=== PATIENT | male | born 1955 | race Caucasian/White ===

== ENCOUNTER → 2016-12-25 | Outpatient (CLI) | payer OTHER ==
--- NOTE | 2016-12-25 12:24 | CONS ---
DATE OF CONSULTATION: 12/25/2016 CONSULTATION/NEW PATIENT EVALUATION: A 61-year-old gentleman who has been admitted [facility] in [facility] for obstructive sleep apnea-hypopnea syndrome. Patient has history of obstructive sleep apnea for about 13 years. He is on treatment with CPAP. He is using his equipment every night for the whole night. His machine is about 3 years old. Last sleep study done about 5 or more years ago. Since that time, patient changed his weight from 210 pounds up to 240 pounds and then down to 230 pounds presently. HISTORY OF PRESENT ILLNESS/SLEEP WAKE EVALUATION: SLEEP SCHEDULE: His sleep schedule from 11 p.m. to 6 a.m. FALLING ASLEEP: No problem with falling asleep. DURING SLEEP: He wakes up from sleep once with nocturia, has TV set in bedroom. Vancleve Sleepiness Scale increased to 11. PAST MEDICAL HISTORY: Positive for diabetes, hypertension, hyperlipidemia, anxiety. PAST SURGICAL HISTORY: Bilateral hip replacement. MEDICATIONS: Metformin, metoprolol, lisinopril, amlodipine, Lantus, alprazolam, hydrocodone acetaminophen, atorvastatin. SOCIAL HISTORY: Positive for smoking in the past. More than 1 pack a day for 20 years; quit 20 years ago. Alcohol consumption rarely. REVIEW OF SYSTEMS: Sometimes sleepiness during the day. FAMILY HISTORY: Hypertension, heart problems, hyperlipidemia, arthritis, snoring, diabetes, ulcers. During physical exam, a 61-year-old gentleman without distress. BP 146/77, HR 64, RR 16. Height 5, 8. Weight 243. BMI 36.9, neck 18 inches in circumference. Temp is 97.3. Oropharynx extremely low position of soft palate. ABDOMEN: Obese. NECK: Supple. No JVD. Thyroid is not palpable. LUNGS: Clear to percussion and to auscultation. Good air exchange. No wheezing or rhonchi. HEART: S1, S2 regular. No murmurs, gallops or rubs. EXTREMITIES: No clubbing or cyanosis. CONTRACTS ANALYST: Awake, alert, and oriented x3. Cranial nerves 2 to 7 intact. There is no fasciculation or atrophy noted. No focal deficits observed. IMPRESSION: 1. Obstructive sleep apnea-hypopnea syndrome diagnosed 13 years ago. Patient continued treatment with CPAP every night for the whole night. Presently, Vancleve Sleepiness Scale increased to 13, some changes of the weight. 2. Obesity. 3. Diabetes mellitus. 4. Hypertension. 5. Hyperlipidemia. 6. Anxiety. 7. Status post bilateral total hip replacement. PLAN: 1. Repeat CPAP titration for re-evaluation of effective CPAP pressure at the present time. 2. Losing weight. 3. Sleep hygiene with regular time in bed for at least 8 hours. 4. No driving if feeling any sleepiness. 5. Prescription for all necessary CPAP supplies, including mask, tube, filters. Thank you very much for referring this patient for evaluation. Sincerely, Pravin Callejas MD, PhD, FAASM. Diplomat of [place] [employer], Sleep Medicine Board by [place] [employer] [place] [employer] Patient Carrier of [facility] [place]
== END | disposition home or self-care (01) ==
LOC: SLEEP 09:57
PROVIDERS: ATTEND Internal Medicine
DX: G47.33 Obstructive sleep apnea (adult) (pediatric) (principal); Z99.89 Dependence on other enabling machines and devices; E66.9 Obesity, unspecified; Z68.36 Body mass index [BMI] 36.0-36.9, adult; E11.9 Type 2 diabetes mellitus without complications; I10 Essential (primary) hypertension; E78.5 Hyperlipidemia, unspecified; F41.9 Anxiety disorder, unspecified; Z96.643 Presence of artificial hip joint, bilateral; Z87.891 Personal history of nicotine dependence; Z79.899 Other long term (current) drug therapy
CPT/HCPCS: 99211

== ENCOUNTER 2019-03-14 01:07 | Emergency (ER) | payer MEDICARE, OTHER ==
[2019-03-14 01:27] LABS: Glucose,Whole Blood 211 mg/dL (75-99)
--- NOTE | 2019-03-14 01:42 | ED ---
General Adult HPI - General Source: patient, RN notes reviewed Mode of arrival: wheelchair Limitations: no limitations <John Hanna P - Last Filed: 03/14/19 03:25> <Shanta Curran P - Last Filed: 03/14/19 05:56> - General Chief complaint: Dizziness Stated complaint: Low Sugar Time Seen by Provider: 03/14/19 01:27 - History of Present Illness Initial comments: 63-year-old male with a past medical history of insulin-dependent diabetes myelitis, hyperlipidemia, hypertension, atrial fibrillation currently taking xarelto presents to the emergency determine for a chief complaint of hypoglycemia. Patient states that he was up in the kitchen when he suddenly started to feel lightheaded and became very sweaty. States that he felt weak and confused. states that she checked his blood sugar and it was 66. States this is very low for him. Patient states he took his Lantus about 2 hours later than normal. Patient states he usually takes is around 9 and took at about 2240. States he took his normal dose. Patient has not gained much today. Denies any chest pain whatsoever. States he does have atrial fibrillation, denies any other cardiac history.Patient has no other complaints at this time including shortness of breath, chest pain, abdominal pain, nausea or vomiting, headache, or visual changes. (John Hanna) - Related Data Allergies Allergy/AdvReac Type Severity Reaction Status Date / Time cyclobenzaprine Allergy Rapid Verified 03/14/19 01:13 [From Flexeril] Heart Rate Penicillins Allergy Unknown Verified 03/14/19 01:13 red (food color) Allergy Rash/Hives Verified 03/14/19 01:13 Review of Systems ROS Other: All systems not noted in ROS Statement are negative. <John Hanna P - Last Filed: 03/14/19 03:25> ROS Other: All systems not noted in ROS Statement are negative. <Shanta Curran P - Last Filed: 03/14/19 05:56> ROS Statement: Those systems with pertinent positive or pertinent negative responses have been documented in the HPI. Past Medical History Past Medical History: Diabetes Mellitus, Hyperlipidemia, Hypertension History of Any Multi-Drug Resistant Organisms: None Reported Past Surgical History: Appendectomy, Orthopedic Surgery Past Psychological History: No Psychological Hx Reported Smoking Status: Former smoker Past Alcohol Use History: None Reported Past Drug Use History: None Reported <John Hanna P - Last Filed: 03/14/19 03:25> General Exam Limitations: no limitations General appearance: alert, in no apparent distress Head exam: Present: atraumatic, normocephalic, normal inspection Eye exam: Present: normal appearance, PERRL, EOMI. Absent: scleral icterus, conjunctival injection, periorbital swelling ENT exam: Present: normal exam, mucous membranes moist Neck exam: Present: normal inspection, full ROM. Absent: tenderness, meningismus, lymphadenopathy Respiratory exam: Present: normal lung sounds bilaterally. Absent: respiratory distress, wheezes, rales, rhonchi, stridor Cardiovascular Exam: Present: regular rate, normal rhythm, normal heart sounds. Absent: systolic murmur, diastolic murmur, rubs, gallop, clicks Neurological exam: Present: alert, oriented X3, CN II-XII intact Psychiatric exam: Present: normal affect, normal mood Skin exam: Present: warm, dry, intact, normal color. Absent: rash, diaphoretic (Patient is not diaphoretic on examination) <John Hanna P - Last Filed: 03/14/19 03:25> Course Vital Signs 03/14/19 03/14/19 01:09 03:43 Temperature 97.6 F 97.4 F L Pulse Rate 58 L 54 L Respiratory 18 19 Rate Blood Pressure 152/75 161/84 O2 Sat by Pulse 94 L 94 L Oximetry EKG Findings - EKG Comments: EKG Findings:: Sinus bradycardia, ventricular rate 57, ID int 206, QTC 436 <John Hanna P - Last Filed: 03/14/19 03:25> Medical Decision Making - Lab Data Result diagrams: 03/14/19 01:40 03/14/19 01:40 <John Hanna P - Last Filed: 03/14/19 03:25> - Lab Data Result diagrams: 03/14/19 01:40 03/14/19 01:40 <Shanta Curran P - Last Filed: 03/14/19 05:56> - Medical Decision Making 63-year-old male with a past medical history of insulin-dependent diabetes, hyperlipidemia, hypertension, atrial fibrillation anticoagulated with xarelto presents to the emergency room for a chief complaint of hypoglycemia. Patient states he had an episode of diaphoresis and dizziness and checked his glucose which was 66. Patient states this is very low for him. Patient states he took his Lantus 2 hours later than normal because he got earlier in the evening. Patient ate 2 candy bars prior to arrival to increase his glucose. Patient is feeling back to baseline at this time. Workup was initiated including CBC, CMP, troponin, all appear within normal limits. Glucose 200-300. Troponin negative. EKG shows a sinus bradycardia with a ventricular rate of 57. Patient does have some blood in the urine which she states that he is currently following urology 4. Patient symptoms are consistent with hypoglycemia. As patient is in much better he will be discharged home. He will follow up with primary care in 1-2 days and return here if he has any worsening symptoms. (John Hanna) I was available for consultation in the emergency department. The history and physical exam were done by the midlevel provider. I was consulted for this patient's care. I reviewed the case with the midlevel provider and based on their presentation of the patient, I agree with the assessment, medical decision making and plan of care as documented. (Shanta Curran) - Lab Data Lab Results 03/14/19 03/14/19 03/14/19 Range/Units 01:24 01:40 01:40 WBC (3.8-10.6) k/uL RBC (4.30-5.90) m/uL Hgb (13.0-17.5) gm/dL Hct (39.0-53.0) % MCV (80.0-100.0) fL MCH (25.0-35.0) pg MCHC (31.0-37.0) g/dL RDW (11.5-15.5) % Plt Count (150-450) k/uL Neutrophils % % Lymphocytes % % Monocytes % % Eosinophils % % Basophils % % Neutrophils # (1.3-7.7) k/uL Lymphocytes # (1.0-4.8) k/uL Monocytes # (0-1.0) k/uL Eosinophils # (0-0.7) k/uL Basophils # (0-0.2) k/uL PT 11.7 (9.0-12.0) sec INR 1.1 (<1.2) APTT 29.0 (22.0-30.0) sec Sodium 140 (137-145) mmol/L Potassium 3.6 (3.5-5.1) mmol/L Chloride 103 (98-107) mmol/L Carbon Dioxide 23 (22-30) mmol/L Anion Gap 14 mmol/L BUN 15 (9-20) mg/dL Creatinine 0.85 (0.66-1.25) mg/dL Est GFR (CKD-EPI)AfAm >90 (>60 ml/min/1.73 sqM) Est GFR (CKD-EPI)NonAf >90 (>60 ml/min/1.73 sqM) Glucose 191 H (74-99) mg/dL POC Glucose (mg/dL) 211 H (75-99) mg/dL POC Glu Composite Mechanic ID Lucie Fisher Calcium 9.8 (8.4-10.2) mg/dL Total Bilirubin 0.6 (0.2-1.3) mg/dL AST 37 (17-59) U/L ALT 33 (21-72) U/L Alkaline Phosphatase 82 (38-126) U/L Troponin I (0.000-0.034) ng/mL Total Protein 7.0 (6.3-8.2) g/dL Albumin 4.2 (3.5-5.0) g/dL Amylase <30 L (30-110) U/L Lipase 259 (23-300) U/L Urine Color Urine Appearance (Clear) Urine pH (5.0-8.0) Ur Specific [place] (1.001-1.035) Urine Protein (Negative) Urine Glucose (UA) (Negative) Urine Ketones (Negative) Urine Blood (Negative) Urine Nitrite (Negative) Urine Bilirubin (Negative) Urine Urobilinogen (<2.0) mg/dL Ur Leukocyte Esterase (Negative) Urine RBC (0-5) /hpf Urine WBC (0-5) /hpf Urine Mucus (None) /hpf Acetone, Qual Negative (Negative) 03/14/19 03/14/19 03/14/19 Range/Units 01:40 01:40 02:56 WBC 8.4 (3.8-10.6) k/uL RBC 4.97 (4.30-5.90) m/uL Hgb 14.4 (13.0-17.5) gm/dL Hct 43.7 (39.0-53.0) % MCV 88.1 (80.0-100.0) fL MCH 29.1 (25.0-35.0) pg MCHC 33.0 (31.0-37.0) g/dL RDW 13.3 (11.5-15.5) % Plt Count 159 (150-450) k/uL Neutrophils % 73 % Lymphocytes % 16 % Monocytes % 7 % Eosinophils % 3 % Basophils % 0 % Neutrophils # 6.1 (1.3-7.7) k/uL Lymphocytes # 1.3 (1.0-4.8) k/uL Monocytes # 0.6 (0-1.0) k/uL Eosinophils # 0.2 (0-0.7) k/uL Basophils # 0.0 (0-0.2) k/uL PT (9.0-12.0) sec INR (<1.2) APTT (22.0-30.0) sec Sodium (137-145) mmol/L Potassium (3.5-5.1) mmol/L Chloride (98-107) mmol/L Carbon Dioxide (22-30) mmol/L Anion Gap mmol/L BUN (9-20) mg/dL Creatinine (0.66-1.25) mg/dL Est GFR (CKD-EPI)AfAm (>60 ml/min/1.73 sqM) Est GFR (CKD-EPI)NonAf (>60 ml/min/1.73 sqM) Glucose (74-99) mg/dL POC Glucose (mg/dL) (75-99) mg/dL POC Glu Composite Mechanic ID Calcium (8.4-10.2) mg/dL Total Bilirubin (0.2-1.3) mg/dL AST (17-59) U/L ALT (21-72) U/L Alkaline Phosphatase (38-126) U/L Troponin I <0.012 (0.000-0.034) ng/mL Total Protein (6.3-8.2) g/dL Albumin (3.5-5.0) g/dL Amylase (30-110) U/L Lipase (23-300) U/L Urine Color Yellow Urine Appearance Clear (Clear) Urine pH 5.5 (5.0-8.0) Ur Specific [place] 1.016 (1.001-1.035) Urine Protein 1+ H (Negative) Urine Glucose (UA) 3+ H (Negative) Urine Ketones 1+ H (Negative) Urine Blood Small H (Negative) Urine Nitrite Negative (Negative) Urine Bilirubin Negative (Negative) Urine Urobilinogen <2.0 (<2.0) mg/dL Ur Leukocyte Esterase Negative (Negative) Urine RBC 10 H (0-5) /hpf Urine WBC 1 (0-5) /hpf Urine Mucus Rare H (None) /hpf Acetone, Qual (Negative) 03/14/19 Range/Units 03:07 WBC (3.8-10.6) k/uL RBC (4.30-5.90) m/uL Hgb (13.0-17.5) gm/dL Hct (39.0-53.0) % MCV (80.0-100.0) fL MCH (25.0-35.0) pg MCHC (31.0-37.0) g/dL RDW (11.5-15.5) % Plt Count (150-450) k/uL Neutrophils % % Lymphocytes % % Monocytes % % Eosinophils % % Basophils % % Neutrophils # (1.3-7.7) k/uL Lymphocytes # (1.0-4.8) k/uL Monocytes # (0-1.0) k/uL Eosinophils # (0-0.7) k/uL Basophils # (0-0.2) k/uL PT (9.0-12.0) sec INR (<1.2) APTT (22.0-30.0) sec Sodium (137-145) mmol/L Potassium (3.5-5.1) mmol/L Chloride (98-107) mmol/L Carbon Dioxide (22-30) mmol/L Anion Gap mmol/L BUN (9-20) mg/dL Creatinine (0.66-1.25) mg/dL Est GFR (CKD-EPI)AfAm (>60 ml/min/1.73 sqM) Est GFR (CKD-EPI)NonAf (>60 ml/min/1.73 sqM) Glucose (74-99) mg/dL POC Glucose (mg/dL) 305 H (75-99) mg/dL POC Glu Composite Mechanic ID Beverly Mckenzie Calcium (8.4-10.2) mg/dL Total Bilirubin (0.2-1.3) mg/dL AST (17-59) U/L ALT (21-72) U/L Alkaline Phosphatase (38-126) U/L Troponin I (0.000-0.034) ng/mL Total Protein (6.3-8.2) g/dL Albumin (3.5-5.0) g/dL Amylase (30-110) U/L Lipase (23-300) U/L Urine Color Urine Appearance (Clear) Urine pH (5.0-8.0) Ur Specific [place] (1.001-1.035) Urine Protein (Negative) Urine Glucose (UA) (Negative) Urine Ketones (Negative) Urine Blood (Negative) Urine Nitrite (Negative) Urine Bilirubin (Negative) Urine Urobilinogen (<2.0) mg/dL Ur Leukocyte Esterase (Negative) Urine RBC (0-5) /hpf Urine WBC (0-5) /hpf Urine Mucus (None) /hpf Acetone, Qual (Negative) Disposition Is patient prescribed a controlled substance at d/c from ED?: No Time of Disposition: 03:28 <John Hanna P - Last Filed: 03/14/19 03:25> <Shanta Curran P - Last Filed: 03/14/19 05:56> Clinical Impression: Hypoglycemia Disposition: HOME SELF-CARE Condition: Good Instructions (If sedation given, give patient instructions): Hypoglycemia in a Person with Diabetes (ED), What to Do if Your Blood Sugar is Low (ED) Additional Instructions: Please follow up with primary care in 1-2 days. Return here to the emergency department if you have any worsening symptoms. Referrals: Pasha Morales MD [Primary Care Provider] - 1-2 days
[2019-03-14 01:56] LABS: INR 1.1 (<1.2); Prothrombin Time 11.7 sec (9.0-12.0)
[2019-03-14 01:58] LABS: ALT 33 U/L (21-72); AST 37 U/L (17-59); Albumin 4.2 g/dL (3.5-5.0); Alkaline Phosphatase 82 U/L (38-126); Amylase <30 U/L (30-110); Anion Gap 14 mmol/L; Basophils % (A) 0 %; Blood Urea Nitrogen 15 mg/dL (9-20); Calcium 9.8 mg/dL (8.4-10.2); Carbon Dioxide 23 mmol/L (22-30); Chloride 103 mmol/L (98-107); Eosinophils # (A) 0.2 k/uL (0-0.7); Eosinophils % (A) 3 %; Glucose 191 mg/dL (74-99); HCT 43.7 % (39.0-53.0); HGB 14.4 gm/dL (13.0-17.5); Lipase 259 U/L (23-300); Lymphocytes # (A) 1.3 k/uL (1.0-4.8); Lymphocytes % (A) 16 %; MCH 29.1 pg (25.0-35.0); MCV 88.1 fL (80.0-100.0); Mean Platelet Volume 6.5; Monocytes # (A) 0.6 k/uL (0-1.0); Monocytes % (A) 7 %; Neutrophils # (A) 6.1 k/uL (1.3-7.7); Neutrophils % (A) 73 %; Platelet Count 159 k/uL (150-450); Potassium 3.6 mmol/L (3.5-5.1); RBC 4.97 m/uL (4.30-5.90); RDW 13.3 % (11.5-15.5); Sodium 140 mmol/L (137-145); Total Bilirubin 0.6 mg/dL (0.2-1.3); WBC 8.4 k/uL (3.8-10.6)
--- NOTE | 2019-03-14 02:03 | XR ---
EXAM: XR Chest, 2 Views CLINICAL HISTORY: ITS.REASON XR Reason: Pain TECHNIQUE: Frontal and lateral views of the chest. COMPARISON: No relevant prior studies available. FINDINGS: Lungs: Unremarkable. No consolidation. Pleural space: Unremarkable. No pneumothorax. Heart: No suspicious enlargement. Mediastinum: Unremarkable. Bones/joints: No acute fracture. IMPRESSION: No acute findings.
[2019-03-14 03:08] LABS: Glucose,Whole Blood 305 mg/dL (75-99)
[2019-03-14 03:16] LABS: Appearance,Urine Clear (Clear); Bilirubin,Urine Negative (Negative); Blood,Urine Small (Negative); Color,Urine Yellow; Glucose,Urine (UA) 3+ (Negative); Ketones,Urine 1+ (Negative); Leukocyte Esterase,Urine Negative (Negative); Mucus,Urine Rare /hpf; Nitrite,Urine Negative (Negative); PH, Urine 5.5 (5.0-8.0); Protein,Urine 1+ (Negative); RBC,Urine 10 /hpf (0-5); Specific Gravity,Urine 1.016 (1.001-1.035); Urobilinogen,Urine <2.0 mg/dL (<2.0); WBC,Urine 1 /hpf (0-5)
[2019-03-14 03:44] VITALS: BP 161/84; PULSE 54; RESP 19; TEMP 97.4
== END 2019-03-14 03:43 | disposition home or self-care (01) ==
LOC: EC 01:07
DX: E11.649 Type 2 diabetes mellitus with hypoglycemia without coma (principal); I48.91 Unspecified atrial fibrillation; E78.5 Hyperlipidemia, unspecified; I10 Essential (primary) hypertension; R00.1 Bradycardia, unspecified; Z88.8 Allergy status to other drugs, medicaments and biological substances; Z88.0 Allergy status to penicillin; Z91.02 Food additives allergy status; Z87.891 Personal history of nicotine dependence
CPT/HCPCS: 36415; 71046; 80053; 81001; 82009; 82150; 83690; 84484; 85025; 85610; 85730; 93005; 99285

== ENCOUNTER → 2019-07-04 | Outpatient (CLI) | payer MEDICARE ==
--- NOTE | 2019-07-04 10:25 | CT ---
EXAMINATION TYPE: CT urogram wo/w con DATE OF EXAM: 07/04/2019 COMPARISON: None. HISTORY: Hematuria, Bladder tumor newly diagnosed. CT DLP: 3075 mGycm, Automated Exposure Control for Dose Reduction was Utilized. CONTRAST: CT scan of the abdomen and pelvis is performed without oral and without and with IV Contrast, patient injected with 100 mL of Isovue 370. Urogram protocol with 3-D reconstructed images created on [employer] workstation and reviewed. FINDINGS: KUB: Noncontrast images show no renal calculi bilaterally. Postcontrast images show symmetric report emergently uptake and excretion from both kidneys with a 2 adjacent simple appearing cysts roughly 1 cm mid pole level right kidney noted. No concerning solid o r cystic renal masses are present. Visualized portion of both ureters show slight tortuous course wit hout obstructing mass or calculus. There is suboptimal evaluation of distal portions due to streak ar tifact from bilateral hip arthroplasty. Visualized portion of the bladder shows eccentric left latera l wall mass or neoplasm measuring roughly 1.4 x 0.5 cm axial image 82. No suspicious wall thickening. LUNG BASES: Elevated right hemidiaphragm. LIVER/GB: No significant abnormality is appreciated. PANCREAS: No significant abnormality is seen. SPLEEN: No significant abnormality is seen. ADRENALS: No significant abnormality is seen. BOWEL: High-density material in the colon could reflect contrast from recent outside CT or ingested f ood product. No suspicious small or large bowel dilatation. Few scattered colonic diverticula are pre sent. There is 4.1 cm debris-filled duodenal diverticulum along the mesenteric surface second portion of duodenum coronal series 7 image 84. PROSTATE/SEMINAL VESICLES: Suboptimal evaluation due to hip metallic hardware. LYMPH NODES: No greater than 1cm abdominal or pelvic lymph nodes are appreciated. OSSEOUS STRUCTURES: Metallic artifact from bilateral hip arthroplasty causes streak artifact limiting evaluation of pelvic structures. There is moderate to severe narrowing with moderate spurring at L4- L5 level. There is moderate to severe narrowing with vacuum disc phenomenon at L5-S1 level. Posterior spur disc complexes efface the anterior thecal sac at these levels. OTHER: No significant additional abnormality is seen. IMPRESSION: Identification of left lateral bladder wall mass or neoplasm. No hydronephrosis or additi onal suspicious masses are identified.
== END | disposition home or self-care (01) ==
LOC: RADCTMAIN 06:20
PROVIDERS: ATTEND Urology
DX: D49.4 Neoplasm of unspecified behavior of bladder (principal); R31.0 Gross hematuria; Z91.041 Radiographic dye allergy status; Z88.8 Allergy status to other drugs, medicaments and biological substances; Z88.1 Allergy status to other antibiotic agents
CPT/HCPCS: 74178; 74400; Q9967

== ENCOUNTER 2022-04-22 23:08 | Observation (INO) | payer MEDICARE ==
[2022-04-22] MEDS ORDERED: SODIUM CHLORIDE 0.9% 1,000 ML IV STA (23:45)
--- NOTE | 2022-04-23 00:16 | ED ---
GI Bleed HPI - General Chief complaint: GI Bleed Stated complaint: GI Bleed Time Seen by Provider: 04/22/22 23:37 Source: patient, RN notes reviewed Mode of arrival: ambulatory Limitations: no limitations - History of Present Illness Initial comments: This is a pleasant 66-year-old male who has a history of atrial fibrillation on anticoagulant medication. Patient states he has had several episodes of bright red blood per rectum which started about 5 PM. He denies any significant pain. He does state that he did have some minimal cramping prior to his last bowel movement. Blood is mixed with stool on occasion. However, he states he was on a old fishing and noted that he had some blood leaking from his rectal area. Patient states that he had a colonoscopy about 5 years ago which did not show any abnormality. Patient denies bleeding from other sites. Denies lightheadedness or symptoms of presyncope No headache, no fever or chills, no changes in vision or hearing, no sore throat or difficulty with speech, no neck pain, no chest pain or shortness of breath, no abdominal pain, no nausea or vomiting, no changes in urination or bowel movements, no numbness or tingling, no extremity pain, no skin rashes or lesions. - Related Data Home Medications Medication Instructions Recorded Confirmed Aspirin EC [Ecotrin Low Dose] 81 mg PO DAILY 04/23/22 04/23/22 Cholecalciferol [Vitamin D3 (25 25 mcg PO DAILY 04/23/22 04/23/22 Mcg = 1000 Iu)] Insulin Glargine,Hum.rec.anlog 77 unit SQ HS 04/23/22 04/23/22 [Lantus Solostar Pen] Insulin Lispro [humaLOG Kwikpen] See Protocol SQ AC-TID 04/23/22 04/23/22 Metoprolol Tartrate [Lopressor] 100 mg PO BID 04/23/22 04/23/22 Rivaroxaban [Xarelto] 20 mg PO HS 04/23/22 04/23/22 Rosuvastatin Calcium [Crestor] 10 mg PO HS 04/23/22 04/23/22 amLODIPine [Norvasc] 10 mg PO DAILY 04/23/22 04/23/22 lisinopriL 40 mg PO DAILY 04/23/22 04/23/22 metFORMIN HCL [Glucophage] 1,000 mg PO BID 04/23/22 04/23/22 Allergies Allergy/AdvReac Type Severity Reaction Status Date / Time cyclobenzaprine Allergy Rapid Verified 04/23/22 06:32 [From Flexeril] Heart Rate Penicillins Allergy Unknown Verified 04/23/22 06:32 red (food color) Allergy Rash/Hives Verified 04/23/22 06:32 Review of Systems ROS Statement: Those systems with pertinent positive or pertinent negative responses have been documented in the HPI. ROS Other: All systems not noted in ROS Statement are negative. Past Medical History Past Medical History: Diabetes Mellitus, Hyperlipidemia, Hypertension History of Any Multi-Drug Resistant Organisms: None Reported Past Surgical History: Appendectomy, Orthopedic Surgery Past Psychological History: No Psychological Hx Reported Smoking Status: Former smoker Past Alcohol Use History: None Reported Past Drug Use History: None Reported - Past Family History Father Additional Family Medical History / Comment(s): heart failure Mother Family Medical History: Diabetes Mellitus Brother(s) Family Medical History: Diabetes Mellitus Additional Family Medical History / Comment(s): pt states that his two older brothers from diabeties General Exam Limitations: no limitations General appearance: alert, in no apparent distress Head exam: Present: atraumatic, normocephalic, normal inspection Eye exam: Present: normal appearance, PERRL, EOMI. Absent: scleral icterus, conjunctival injection, periorbital swelling ENT exam: Present: normal exam, mucous membranes moist Neck exam: Present: normal inspection. Absent: tenderness, meningismus, lymphadenopathy Respiratory exam: Present: normal lung sounds bilaterally. Absent: respiratory distress, wheezes, rales, rhonchi, stridor Cardiovascular Exam: Present: regular rate, normal rhythm, normal heart sounds. Absent: systolic murmur, diastolic murmur, rubs, gallop, clicks GI/Abdominal exam: Present: soft, hyperactive bowel sounds. Absent: distended, tenderness, guarding, rebound, rigid Rectal exam: Present: normal inspection, normal rectal tone, heme (+) stool, bloody stool, normal prostate. Absent: decreased rectal tone, black stool, fecal impaction, hemorrhoids, mass, tenderness, prostate tenderness, prostate enlargement Extremities exam: Present: normal inspection, full ROM, normal capillary refill. Absent: tenderness, pedal edema, joint swelling, calf tenderness Back exam: Present: normal inspection Neurological exam: Present: alert, oriented X3, CN II-XII intact Psychiatric exam: Present: normal affect, normal mood Skin exam: Present: warm, dry, intact, normal color. Absent: rash, cyanosis, diaphoretic, erythema, urticaria, vesicles Course Vital Signs 04/22/22 04/23/22 04/23/22 23:26 01:36 02:12 Temperature 98.5 F Pulse Rate 67 63 60 Respiratory 16 19 18 Rate Blood Pressure 203/91 147/75 148/79 O2 Sat by Pulse 95 96 98 Oximetry 04/23/22 04/23/22 05:36 06:52 Temperature 98.5 F Pulse Rate 60 60 Respiratory 16 16 Rate Blood Pressure 143/82 138/60 O2 Sat by Pulse 93 L 93 L Oximetry - Reevaluation(s) Reevaluation #1: 04/23/22 01:38 Medical record is reviewed condition stable Patient is informed of results and questions answered Patient in no distress Medical Decision Making - Medical Decision Making Patient presents with bright red blood per rectum. Patient looks well otherwise. I discussed this case with the on-call surgeon, Dr. Lo who agreed to consult on the case. Patient will be admitted for serial CBCs. Be admitted under [facility]. Patient currently hemodynamic stable, in fact is hypertensive. All findings discussed with the patient. Patient in no significant distress at time of admission. Repeat abdominal exam is essentially benign. Soft, nontender, nondistended. On-call surgery, Dr. Lo agreed to consult on the patient. [facility] SupervisionDr. Mclaughlin - Lab Data Result diagrams: 04/23/22 11:53 04/23/22 00:06 Lab Results 04/22/22 04/22/22 04/22/22 Range/Units 23:30 23:30 23:31 WBC (3.8-10.6) k/uL RBC (4.30-5.90) m/uL Hgb (13.0-17.5) gm/dL Hct (39.0-53.0) % MCV (80.0-100.0) fL MCH (25.0-35.0) pg MCHC (31.0-37.0) g/dL RDW (11.5-15.5) % Plt Count (150-450) k/uL MPV Neutrophils % % Lymphocytes % % Monocytes % % Eosinophils % % Basophils % % Neutrophils # (1.3-7.7) k/uL Lymphocytes # (1.0-4.8) k/uL Monocytes # (0-1.0) k/uL Eosinophils # (0-0.7) k/uL Basophils # (0-0.2) k/uL PT (9.0-12.0) sec INR (<1.2) APTT (22.0-30.0) sec Sodium (137-145) mmol/L Potassium (3.5-5.1) mmol/L Chloride (98-107) mmol/L Carbon Dioxide (22-30) mmol/L Anion Gap mmol/L BUN (9-20) mg/dL Creatinine (0.66-1.25) mg/dL Est GFR (CKD-EPI)AfAm (>60 ml/min/1.73 sqM) Est GFR (CKD-EPI)NonAf (>60 ml/min/1.73 sqM) Glucose (74-99) mg/dL POC Glucose (mg/dL) (75-99) mg/dL POC Glu Plastic Technician ID Calcium (8.4-10.2) mg/dL Total Bilirubin (0.2-1.3) mg/dL AST (17-59) U/L ALT (4-49) U/L Alkaline Phosphatase (38-126) U/L Total Protein (6.3-8.2) g/dL Albumin (3.5-5.0) g/dL Stool Occult Blood Positive (Negative) Stool Lactoferrin POSITIVE A (NEGATIVE) C. difficile (EIA) Intrp Negative (Negative) Blood Type Blood Type Confirm Blood Type Recheck Bld Type Recheck Status Antibody Screen Spec Expiration Date 04/23/22 04/23/22 04/23/22 Range/Units 00:01 00:05 00:06 WBC 7.2 (3.8-10.6) k/uL RBC 5.15 (4.30-5.90) m/uL Hgb 14.5 (13.0-17.5) gm/dL Hct 46.0 (39.0-53.0) % MCV 89.3 (80.0-100.0) fL MCH 28.1 (25.0-35.0) pg MCHC 31.4 (31.0-37.0) g/dL RDW 13.2 (11.5-15.5) % Plt Count 184 (150-450) k/uL MPV 6.9 Neutrophils % 66 % Lymphocytes % 21 % Monocytes % 8 % Eosinophils % 3 % Basophils % 1 % Neutrophils # 4.7 (1.3-7.7) k/uL Lymphocytes # 1.5 (1.0-4.8) k/uL Monocytes # 0.6 (0-1.0) k/uL Eosinophils # 0.2 (0-0.7) k/uL Basophils # 0.0 (0-0.2) k/uL PT (9.0-12.0) sec INR (<1.2) APTT (22.0-30.0) sec Sodium (137-145) mmol/L Potassium (3.5-5.1) mmol/L Chloride (98-107) mmol/L Carbon Dioxide (22-30) mmol/L Anion Gap mmol/L BUN (9-20) mg/dL Creatinine (0.66-1.25) mg/dL Est GFR (CKD-EPI)AfAm (>60 ml/min/1.73 sqM) Est GFR (CKD-EPI)NonAf (>60 ml/min/1.73 sqM) Glucose (74-99) mg/dL POC Glucose (mg/dL) (75-99) mg/dL POC Glu Plastic Technician ID Calcium (8.4-10.2) mg/dL Total Bilirubin (0.2-1.3) mg/dL AST (17-59) U/L ALT (4-49) U/L Alkaline Phosphatase (38-126) U/L Total Protein (6.3-8.2) g/dL Albumin (3.5-5.0) g/dL Stool Occult Blood (Negative) Stool Lactoferrin (NEGATIVE) C. difficile (EIA) Intrp (Negative) Blood Type O Positive Blood Type Confirm O Positive Blood Type Recheck No Previous Record Bld Type Recheck Status CABO Indicated Antibody Screen NEGATIVE Spec Expiration Date 04/26/2022 - 230004/23/22 04/23/22 04/23/22 Range/Units 00:06 00:06 05:37 WBC 6.7 (3.8-10.6) k/uL RBC 4.51 (4.30-5.90) m/uL Hgb 12.6 L (13.0-17.5) gm/dL Hct 39.6 (39.0-53.0) % MCV 87.9 (80.0-100.0) fL MCH 28.0 (25.0-35.0) pg MCHC 31.8 (31.0-37.0) g/dL RDW 13.2 (11.5-15.5) % Plt Count 179 (150-450) k/uL MPV 9.2 Neutrophils % % Lymphocytes % % Monocytes % % Eosinophils % % Basophils % % Neutrophils # (1.3-7.7) k/uL Lymphocytes # (1.0-4.8) k/uL Monocytes # (0-1.0) k/uL Eosinophils # (0-0.7) k/uL Basophils # (0-0.2) k/uL PT 13.8 H (9.0-12.0) sec INR 1.3 H (<1.2) APTT 32.2 H (22.0-30.0) sec Sodium 137 (137-145) mmol/L Potassium 4.4 (3.5-5.1) mmol/L Chloride 101 (98-107) mmol/L Carbon Dioxide 26 (22-30) mmol/L Anion Gap 10 mmol/L BUN 14 (9-20) mg/dL Creatinine 1.03 (0.66-1.25) mg/dL Est GFR (CKD-EPI)AfAm 87 (>60 ml/min/1.73 sqM) Est GFR (CKD-EPI)NonAf 75 (>60 ml/min/1.73 sqM) Glucose 208 H (74-99) mg/dL POC Glucose (mg/dL) (75-99) mg/dL POC Glu Plastic Technician ID Calcium 9.3 (8.4-10.2) mg/dL Total Bilirubin 0.8 (0.2-1.3) mg/dL AST 65 H (17-59) U/L ALT 44 (4-49) U/L Alkaline Phosphatase 88 (38-126) U/L Total Protein 7.4 (6.3-8.2) g/dL Albumin 4.4 (3.5-5.0) g/dL Stool Occult Blood (Negative) Stool Lactoferrin (NEGATIVE) C. difficile (EIA) Intrp (Negative) Blood Type Blood Type Confirm Blood Type Recheck Bld Type Recheck Status Antibody Screen Spec Expiration Date 04/23/22 04/23/22 Range/Units 07:11 07:11 WBC (3.8-10.6) k/uL RBC (4.30-5.90) m/uL Hgb (13.0-17.5) gm/dL Hct (39.0-53.0) % MCV (80.0-100.0) fL MCH (25.0-35.0) pg MCHC (31.0-37.0) g/dL RDW (11.5-15.5) % Plt Count (150-450) k/uL MPV Neutrophils % % Lymphocytes % % Monocytes % % Eosinophils % % Basophils % % Neutrophils # (1.3-7.7) k/uL Lymphocytes # (1.0-4.8) k/uL Monocytes # (0-1.0) k/uL Eosinophils # (0-0.7) k/uL Basophils # (0-0.2) k/uL PT (9.0-12.0) sec INR (<1.2) APTT (22.0-30.0) sec Sodium (137-145) mmol/L Potassium (3.5-5.1) mmol/L Chloride (98-107) mmol/L Carbon Dioxide (22-30) mmol/L Anion Gap mmol/L BUN (9-20) mg/dL Creatinine (0.66-1.25) mg/dL Est GFR (CKD-EPI)AfAm (>60 ml/min/1.73 sqM) Est GFR (CKD-EPI)NonAf (>60 ml/min/1.73 sqM) Glucose (74-99) mg/dL POC Glucose (mg/dL) 144 H 144 H (75-99) mg/dL POC Glu Plastic Technician Madai Gusman Megan Calcium (8.4-10.2) mg/dL Total Bilirubin (0.2-1.3) mg/dL AST (17-59) U/L ALT (4-49) U/L Alkaline Phosphatase (38-126) U/L Total Protein (6.3-8.2) g/dL Albumin (3.5-5.0) g/dL Stool Occult Blood (Negative) Stool Lactoferrin (NEGATIVE) C. difficile (EIA) Intrp (Negative) Blood Type Blood Type Confirm Blood Type Recheck Bld Type Recheck Status Antibody Screen Spec Expiration Date Critical Care Time Critical Care Time: Yes (30) Total Critical Care Time: 30 Critical Care Time: Gastrointestinal bleeding. Reevaluation of the patient's condition. Reevaluation of the patient's response to treatment. Reevaluation diagnostic testing. Disposition Clinical Impression: Hematochezia, Gastrointestinal bleeding, Hypertension, poor control Disposition: ADMITTED IP TO THIS [facility] Condition: Fair Is patient prescribed a controlled substance at d/c from ED?: No Time of Disposition: 01:37 Decision to Admit Reason: Admit from EC
[2022-04-23 00:40] LABS: Basophils % (A) 1 %; Eosinophils # (A) 0.2 k/uL (0-0.7); Eosinophils % (A) 3 %; HGB 14.5 gm/dL (13.0-17.5); Lymphocytes # (A) 1.5 k/uL (1.0-4.8); Lymphocytes % (A) 21 %; MCH 28.1 pg (25.0-35.0); MCHC 31.4 g/dL (31.0-37.0); MCV 89.3 fL (80.0-100.0); Mean Platelet Volume 6.9; Monocytes # (A) 0.6 k/uL (0-1.0); Monocytes % (A) 8 %; Neutrophils # (A) 4.7 k/uL (1.3-7.7); Neutrophils % (A) 66 %; Platelet Count 184 k/uL (150-450); RBC 5.15 m/uL (4.30-5.90); RDW 13.2 % (11.5-15.5); WBC 7.2 k/uL (3.8-10.6)
[2022-04-23 00:51] LABS: INR 1.3 (<1.2); Partial Thromboplastin Time 32.2 sec (22.0-30.0); Prothrombin Time 13.8 sec (9.0-12.0)
[2022-04-23 01:04] LABS: Albumin 4.4 g/dL (3.5-5.0); Calcium 9.3 mg/dL (8.4-10.2); Potassium 4.4 mmol/L (3.5-5.1); Total Bilirubin 0.8 mg/dL (0.2-1.3); Total Protein 7.4 g/dL (6.3-8.2)
[2022-04-23] MEDS ORDERED: PANTOPRAZOLE 40 MG/10 ML VIAL IVP STA (01:27)
[2022-04-23] MEDS ORDERED: ONDANSETRON 4 MG/2 ML VIAL IVP PRN (01:41)
[2022-04-23] MEDS ORDERED: NALOXONE 0.4 MG/ML 1 ML VIAL IV PRN (01:41)
--- NOTE | 2022-04-23 01:50 | XR ---
EXAMINATION TYPE: XR abdomen acute w cxr DATE OF EXAM: 04/23/2022 COMPARISON: Chest x-ray 03/14/2019 HISTORY: Pain TECHNIQUE: 4 views FINDINGS: Heart and mediastinum are normal. Lungs are clear. Diaphragm is normal. Bowel gas pattern i s normal. No sign of intestinal obstruction or pneumoperitoneum. Fecal pattern is normal. There is bi lateral hip prosthesis. Sacroiliac joints are intact. IMPRESSION: Nonacute abdomen. Normal chest. No adverse change.
[2022-04-23] MEDS: SODIUM CHLORIDE 0.9% 1,000 ML IV SCH ×3 (05:36→19:46)
[2022-04-23 05:49] LABS: HCT 39.6 % (39.0-53.0); HGB 12.6 gm/dL (13.0-17.5); MCHC 31.8 g/dL (31.0-37.0); MCV 87.9 fL (80.0-100.0); Mean Platelet Volume 9.2; Platelet Count 179 k/uL (150-450); RBC 4.51 m/uL (4.30-5.90); RDW 13.2 % (11.5-15.5); WBC 6.7 k/uL (3.8-10.6)
[2022-04-23 07:13] LABS: Glucose,Whole Blood 144 mg/dL (75-99)
--- NOTE | 2022-04-23 09:32 | P.GSCN ---
History of Present Illness Consult date: 04/23/22 History of present illness: CHIEF COMPLAINT: GI bleed HISTORY OF PRESENT ILLNESS: This is a 66-year-old male with a known history of atrial fibrillation anticoagulated with Xarelto. He also has a history of peptic ulcer disease several years ago. Patient presents to the hospital with complaints of bright red blood per rectum. He is having passage of blood every couple of hours. He reports about 6 times in the ER through the night. And currently he is in the ICU. He is had no passage of blood since 7 AM. Xarelto is on hold. Hemoglobin has dropped from 14.5-12.6. He is on IV Protonix. Denies any NSAID use. His last colonoscopy was 5 years ago and was negative per patient. Last EGD was several years ago in which he had peptic ulcer disease. 5 years ago he had a colonoscopy due to bleeding from rectum as well and at that time he reports they did not find any source of bleeding. Denies any abdominal pain. Denies any nausea or vomiting. He does report that he had some abdominal pain when initially the bleeding started but since then it has resolved. PAST MEDICAL HISTORY: Diabetes, hyperlipidemia, hypertension, peptic ulcer disease PAST SURGICAL HISTORY: Appendectomy MEDICATIONS: See list. ALLERGIES: See list. SOCIAL HISTORY: No illicit drug use. Former smoker REVIEW OF SYSTEMS: CONSTITUTIONAL: Denies fever or chills. HEENT: Denies blurred vision, vision changes, or eye pain. Denies hemoptysis CARDIOVASCULAR: Denies chest pain or pressure. RESPIRATORY: No shortness of breath. GASTROINTESTINAL: See HPI for pertinent findings HEMATOLOGIC: Denies bleeding disorders. GENITOURINARY: Denies any blood in urine or increased urinary frequency. SKIN: Denies pruitis. Denies rash. PHYSICAL EXAM: VITAL SIGNS: Reviewed GENERAL: Well-developed in no acute distress. HEENT: No sclera icterus. Extraocular movements grossly intact. Moist buccal mucosa. Head is atraumatic, normocephalic. No nasal drainage. ABDOMEN: Soft. Nondistended. Nontender NEUROLOGIC: Alert and oriented. Cranial nerves II through XII grossly intact. LABORATORY DATA: WBC is 6.7 hemoglobin 14.5 down to 12.6 platelets 179 INR 1.3 Sodium 137 potassium is 4.4 creatinine 1.03 Glucose 144 AST 65 ALT 44 Stool for occult blood positive stool for C. diff negative IMAGING: Abdominal and chest x-ray nonacute abdomen. Normal chest. ASSESSMENT: 1. Acute GI bleed with bright red blood per rectum 2. Prior history of peptic ulcer disease 3. Prior history of GI bleed 4. History of atrial fibrillation anticoagulated on Xarelto at home PLAN: -Patient scheduled for EGD with Dr. lebron today -Keep patient nothing by mouth -Continue IV fluids -Continue IV Protonix -Continue to monitor for signs and symptoms of bleeding -Continue to monitor hemoglobin -Continue to hold Xarelto Thank you for this consultation Physician Representative [facility] note has been reviewed by physician. Signing provider agrees with the documented findings, assessment, and plan of care. Past Medical History Past Medical History: Diabetes Mellitus, Hyperlipidemia, Hypertension History of Any Multi-Drug Resistant Organisms: None Reported Past Surgical History: Appendectomy, Orthopedic Surgery Past Psychological History: No Psychological Hx Reported Smoking Status: Former smoker Past Alcohol Use History: None Reported Past Drug Use History: None Reported Medications and Allergies Home Medications Medication Instructions Recorded Confirmed Type Aspirin EC [Ecotrin Low Dose] 81 mg PO DAILY 04/23/22 04/23/22 History Cholecalciferol [Vitamin D3 (25 25 mcg PO DAILY 04/23/22 04/23/22 History Mcg = 1000 Iu)] Insulin Glargine,Hum.rec.anlog 77 unit SQ HS 04/23/22 04/23/22 History [Lantus Solostar Pen] Insulin Lispro [humaLOG Kwikpen] See Protocol SQ AC-TID 04/23/22 04/23/22 History Metoprolol Tartrate [Lopressor] 100 mg PO BID 04/23/22 04/23/22 History Rivaroxaban [Xarelto] 20 mg PO HS 04/23/22 04/23/22 History Rosuvastatin Calcium [Crestor] 10 mg PO HS 04/23/22 04/23/22 History amLODIPine [Norvasc] 10 mg PO DAILY 04/23/22 04/23/22 History lisinopriL 40 mg PO DAILY 04/23/22 04/23/22 History metFORMIN HCL [Glucophage] 1,000 mg PO BID 04/23/22 04/23/22 History Allergies Allergy/AdvReac Type Severity Reaction Status Date / Time cyclobenzaprine Allergy Rapid Verified 04/23/22 06:32 [From Flexeril] Heart Rate Penicillins Allergy Unknown Verified 04/23/22 06:32 red (food color) Allergy Rash/Hives Verified 04/23/22 06:32 Surgical - Exam Vital Signs Temp Pulse Resp BP Pulse Ox 98.5 F 67 16 203/91 95 04/22/22 23:26 04/22/22 23:26 04/22/22 23:26 04/22/22 23:26 04/22/22 23:26 Results - Labs 04/23/22 05:37 04/23/22 00:06 Abnormal Lab Results - Last 24 Hours (Table) 04/23/22 04/23/22 04/23/22 Range/Units 00:06 00:06 05:37 Hgb 12.6 L (13.0-17.5) gm/dL PT 13.8 H (9.0-12.0) sec INR 1.3 H (<1.2) APTT 32.2 H (22.0-30.0) sec Glucose 208 H (74-99) mg/dL POC Glucose (mg/dL) (75-99) mg/dL AST 65 H (17-59) U/L 04/23/22 04/23/22 Range/Units 07:11 07:11 Hgb (13.0-17.5) gm/dL PT (9.0-12.0) sec INR (<1.2) APTT (22.0-30.0) sec Glucose (74-99) mg/dL POC Glucose (mg/dL) 144 H 144 H (75-99) mg/dL AST (17-59) U/L Diabetes panel 04/23/22 Range/Units 00:06 Sodium 137 (137-145) mmol/L Potassium 4.4 (3.5-5.1) mmol/L Chloride 101 (98-107) mmol/L Carbon Dioxide 26 (22-30) mmol/L BUN 14 (9-20) mg/dL Creatinine 1.03 (0.66-1.25) mg/dL Glucose 208 H (74-99) mg/dL Calcium 9.3 (8.4-10.2) mg/dL AST 65 H (17-59) U/L ALT 44 (4-49) U/L Alkaline Phosphatase 88 (38-126) U/L Total Protein 7.4 (6.3-8.2) g/dL Albumin 4.4 (3.5-5.0) g/dL Calcium panel 04/23/22 Range/Units 00:06 Calcium 9.3 (8.4-10.2) mg/dL Albumin 4.4 (3.5-5.0) g/dL Pituitary panel 04/23/22 Range/Units 00:06 Sodium 137 (137-145) mmol/L Potassium 4.4 (3.5-5.1) mmol/L Chloride 101 (98-107) mmol/L Carbon Dioxide 26 (22-30) mmol/L BUN 14 (9-20) mg/dL Creatinine 1.03 (0.66-1.25) mg/dL Glucose 208 H (74-99) mg/dL Calcium 9.3 (8.4-10.2) mg/dL Adrenal panel 04/23/22 Range/Units 00:06 Sodium 137 (137-145) mmol/L Potassium 4.4 (3.5-5.1) mmol/L Chloride 101 (98-107) mmol/L Carbon Dioxide 26 (22-30) mmol/L BUN 14 (9-20) mg/dL Creatinine 1.03 (0.66-1.25) mg/dL Glucose 208 H (74-99) mg/dL Calcium 9.3 (8.4-10.2) mg/dL Total Bilirubin 0.8 (0.2-1.3) mg/dL AST 65 H (17-59) U/L ALT 44 (4-49) U/L Alkaline Phosphatase 88 (38-126) U/L Total Protein 7.4 (6.3-8.2) g/dL Albumin 4.4 (3.5-5.0) g/dL
[2022-04-23] MEDS: PANTOPRAZOLE 40 MG/10 ML VIAL IV SCH (09:41)
--- NOTE | 2022-04-23 10:00 | P.CNPUL ---
History of Present Illness Consult date: 04/23/22 Requesting physician: Triston Perdue Reason for consult: other Chief complaint: GI bleeding History of present illness: 66-year-old white male patient of Dr. Morales with past medical history of p roximal atrial fibrillation on Xarelto, hypertension, diabetes mellitus type 2, sleep apnea on CPAP at a pressure of 16 cm of water, previous episode of GI bleeding 5 years ago, presented to the emergency department on 04/22/2022 with complaints of dark red bloody bowel movements that started yesterday at around 9 PM while the patient was out in his boat fishing. Patient states he had around 6-7 episodes initially with dark clots and subsequently the stools got brighter red in color. No abdominal pain, no lightheadedness, no chest pain, no shortness of breath. Patient reports some mild cramping, but abdomen is soft. No Hx of ETOH, no chronic liver disease. He came into the ER for evaluation. Hemoglobin on admission was 14.5, platelet count was 184, INR was 1.3, electrolytes and renal profile were unremarkable. AST was 65, ALT is 44, alk phos was 88, stool for a old blood was negative, stool for C. diff was negative. Hemodynamically patient has remained stable, he was given IV fluids at a rate of 130 ML per hour, and started on IV Protonix. He is calm and comfortable this morning, he is in sinus mechanism with a controlled rate, blood pressure is stable, no abdominal pain, general surgery has been consulted and the plan is to proceed with colonoscopy this morning. Of note with his previous episodes of GI bleeding patient presents similar presentation with maroon-colored stools, no hematemesis, had a colonoscopy at that time which showed no active source of bleeding. No breathing issues, patient is on room air with a pulse ox of 95%, does have past history of smoking which has been in remission for the past 20 years, carries [id number] smoking history prior to that. Review of Systems All systems: negative Constitutional: Denies chills, Denies fever Eyes: denies blurred vision, denies pain Ears, nose, mouth and throat: Denies headache, Denies sore throat Cardiovascular: Denies chest pain, Denies shortness of breath Respiratory: Denies cough Gastrointestinal: Reports hematochezia, Denies abdominal pain, Denies diarrhea, Denies nausea, Denies vomiting Musculoskeletal: Denies myalgias Integumentary: Denies pruritus, Denies rash Neurological: Denies numbness, Denies weakness Psychiatric: Denies anxiety, Denies depression Endocrine: Denies fatigue, Denies weight change Past Medical History Past Medical History: Diabetes Mellitus, Hyperlipidemia, Hypertension History of Any Multi-Drug Resistant Organisms: None Reported Past Surgical History: Appendectomy, Orthopedic Surgery Past Psychological History: No Psychological Hx Reported Smoking Status: Former smoker Past Alcohol Use History: None Reported Past Drug Use History: None Reported Medications and Allergies Home Medications Medication Instructions Recorded Confirmed Type Aspirin EC [Ecotrin Low Dose] 81 mg PO DAILY 04/23/22 04/23/22 History Cholecalciferol [Vitamin D3 (25 25 mcg PO DAILY 04/23/22 04/23/22 History Mcg = 1000 Iu)] Insulin Glargine,Hum.rec.anlog 77 unit SQ 04/23/22 04/23/22 History [Lantus Solostar Pen] Insulin Lispro [humaLOG Kwikpen] See Protocol SQ AC-TID 04/23/22 04/23/22 History Metoprolol Tartrate [Lopressor] 100 mg PO BID 04/23/22 04/23/22 History Rivaroxaban [Xarelto] 20 mg PO HS 04/23/22 04/23/22 History Rosuvastatin Calcium [Crestor] 10 mg PO HS 04/23/22 04/23/22 History amLODIPine [Norvasc] 10 mg PO DAILY 04/23/22 04/23/22 History lisinopriL 40 mg PO DAILY 04/23/22 04/23/22 History metFORMIN HCL [Glucophage] 1,000 mg PO BID 04/23/22 04/23/22 History Allergies Allergy/AdvReac Type Severity Reaction Status Date / Time cyclobenzaprine Allergy Rapid Verified 04/23/22 06:32 [From Flexeril] Heart Rate Penicillins Allergy Unknown Verified 04/23/22 06:32 red (food color) Allergy Rash/Hives Verified 04/23/22 06:32 Physical Exam Vitals: Vital Signs Temp Pulse Pulse Resp BP BP Pulse Ox 04/23/22 09:44 57 L 14 147/89 95 04/23/22 07:30 58 L 21 91 L 04/23/22 07:20 56 L 17 93 L 04/23/22 07:10 60 13 95 04/23/22 07:06 60 24 04/23/22 06:52 98.5 F 60 16 138/60 93 L 04/23/22 05:36 60 16 143/82 93 L 04/23/22 02:12 60 18 148/79 98 04/23/22 01:36 63 19 147/75 96 04/22/22 23:26 98.5 F 67 16 203/91 95 Intake and Output 04/22/22 04/23/22 04/23/22 22:59 06:59 14:59 Intake Total 260 Output Total 0 Balance 260 Intake: IV 260 Sodium Chloride 0.9% 1, 260 000 ml @ 130 mls/hr IV . Q7H42M [facility] Rx#:[id number] Output: Urine 0 Other: # Voids 0 Weight 108.862 kg GENERAL EXAM: Alert, very pleasant, 66-year-old white male, on room air comfortable in no apparent distress. HEAD: Normocephalic/atraumatic. EYES: Normal reaction of pupils, equal size. Conjunctiva pink, sclera white. NOSE: Clear with pink turbinates. THROAT: No erythema or exudates. NECK: No masses, no JVD, no thyroid enlargement, no adenopathy. CHEST: No chest wall deformity. Symmetrical expansion. LUNGS: Equal air entry with no crackles, wheeze, rhonchi or dullness. CVS: Regular rate and rhythm, normal S1 and S2, no gallops, no murmurs, no rubs ABDOMEN: Soft, nontender. No hepatosplenomegaly, normal bowel sounds, no guarding or rigidity. EXTREMITIES: No clubbing, no edema, no cyanosis, 2+ pulses and upper and lower extremities. MUSCULOSKELETAL: Muscle strength and tone normal. SPINE: No scoliosis or deformity SKIN: No rashes CENTRAL NERVOUS SYSTEM: Alert and oriented -3. No focal deficits, tone is normal in all 4 extremities. PSYCHIATRIC: Alert and oriented -3. Appropriate affect. Intact judgment and insight. Results - Laboratory Findings CBC and BMP: 04/23/22 11:53 04/23/22 00:06 PT/INR, D-dimer PT 13.8 sec (9.0-12.0) H 04/23/22 00:06 INR 1.3 (<1.2) H 04/23/22 00:06 Abnormal lab findings: Abnormal Labs 04/23/22 04/23/22 04/23/22 00:06 00:06 05:37 Hgb 12.6 L PT 13.8 H INR 1.3 H APTT 32.2 H Glucose 208 H POC Glucose (mg/dL) AST 65 H 04/23/22 04/23/22 07:11 07:11 Hgb PT INR APTT Glucose POC Glucose (mg/dL) 144 H 144 H AST - Diagnostic Findings Chest x-ray: report reviewed, image reviewed Additional studies: Acute abdominal series reviewed Assessment and Plan Plan: Assessment: #1. Acute GI blood loss anemia related to lower GI bleeding, patient had 6 or 7 episodes of dark clotty and bright red stools #2. History of paroxysmal atrial fibrillation on Xarelto which is currently on hold #3. Previous episode of lower GI bleeding 5 years ago #4. History of hypertension #5. Diabetes mellitus type 2 #6. Former smoker, carries [id number] smoking history in remission for last 20 years #7. Sleep apnea on CPAP at a pressure of 16 cm of water on a regular basis. The patient is extremely compliant with it Plan: Continue hydration Today's hemoglobin has been noted, patient has not required Vasopressor support Patient had one episode of bright red stool this morning Xarelto on hold Gen. surgery is on and is planning on EGD today, possible colonoscopy tomorrow Monitoring serial H&H's, renal function, electrolytes I have personally seen and examined the patient, performed the documentation and the assessment and plan as written. Number of minutes spent on the visit: [15] I have personally seen and examined the patient and reviewed the documentation. I performed a joint evaluation with the nurse practitioner in this evaluation was done more than 30 minutes. I fully agree with the documentation above and the plan of care. This is a joint evaluation that was done along with a nurse practitioner. The patient was brought into the intensive care unit because of ongoing GI bleed. This is most likely lower GI bleed. We'll monitor the hemoglobin. GI is on the case. Patient is hemodynamically stable. We'll keep the patient nothing by mouth for now. Comorbidities were noted. We'll follow. Time with Patient: Greater than 30
--- NOTE | 2022-04-23 12:13 | P.HPIM ---
History of Present Illness This is a pleasant 66 years old male with past medical history of B Ayleen, hypertension, hyperlipidemia Patient presents because of the bright blood in stool, several episodes with some mild abdominal pain. Patient states that he went out for sufficient when he started having bloody stools with bowel movements and some abdominal cramps started last night, he has 6-7 bouts of left per rectum. Also she has black stool. This morning he has no abdominal pain. He denies dizziness, no chest pain or dyspnea. No headache or numbness or weakness. No dysuria or diarrhea or vomiting. He denies smoking, alcohol or illicit drugs. He is on a Xarelto for A. fib and his mft Dr. Culp and baby aspirin Vitas looks stable. Labs including CBC, BMP, liver enzymes are unremarkable except for INR 1.3, glucose 208. Occult blood in stool positive. C. diff is negative Review of Systems Review of systems CONSTITUTIONAL: No fever, no malaise, no fatigue. HEENT: No recent visual problems or hearing problems. Denied any sore throat. CARDIOVASCULAR: No orthopnea, PND, no palpitations, no syncope. PULMONARY: No shortness of breath, no cough, no hemoptysis. GASTROINTESTINAL: No diarrhea, no nausea, no vomiting,. Normoactive bowel sounds. NEUROLOGICAL: No headaches, no weakness, no numbness. HEMATOLOGICAL: Denies any bleeding or petechiae. GENITOURINARY: Denies any burning micturition, frequency, or urgency. MUSCULOSKELETAL/RHEUMATOLOGICAL: Denies any joint pain, swelling, or any muscle pain. ENDOCRINE: Denies any polyuria or polydipsia. Past Medical History Past Medical History: Diabetes Mellitus, Hyperlipidemia, Hypertension History of Any Multi-Drug Resistant Organisms: None Reported Past Surgical History: Appendectomy, Orthopedic Surgery Past Psychological History: No Psychological Hx Reported Smoking Status: Former smoker Past Alcohol Use History: None Reported Past Drug Use History: None Reported - Past Family History Father Additional Family Medical History / Comment(s): heart failure Mother Family Medical History: Diabetes Mellitus Brother(s) Family Medical History: Diabetes Mellitus Additional Family Medical History / Comment(s): pt states that his two older brothers from diabeties Medications and Allergies Home Medications Medication Instructions Recorded Confirmed Type Aspirin EC [Ecotrin Low Dose] 81 mg PO DAILY 04/23/22 04/23/22 History Cholecalciferol [Vitamin D3 (25 25 mcg PO DAILY 04/23/22 04/23/22 History Mcg = 1000 Iu)] Insulin Glargine,Hum.rec.anlog 77 unit SQ HS 04/23/22 04/23/22 History [Lantus Solostar Pen] Insulin Lispro [humaLOG Kwikpen] See Protocol SQ AC-TID 04/23/22 04/23/22 History Metoprolol Tartrate [Lopressor] 100 mg PO BID 04/23/22 04/23/22 History Rivaroxaban [Xarelto] 20 mg PO HS 04/23/22 04/23/22 History Rosuvastatin Calcium [Crestor] 10 mg PO HS 04/23/22 04/23/22 History amLODIPine [Norvasc] 10 mg PO DAILY 04/23/22 04/23/22 History lisinopriL 40 mg PO DAILY 04/23/22 04/23/22 History metFORMIN HCL [Glucophage] 1,000 mg PO BID 04/23/22 04/23/22 History Allergies Allergy/AdvReac Type Severity Reaction Status Date / Time cyclobenzaprine Allergy Rapid Verified 04/23/22 06:32 [From Flexeril] Heart Rate Penicillins Allergy Unknown Verified 04/23/22 06:32 red (food color) Allergy Rash/Hives Verified 04/23/22 06:32 Physical Exam Vitals: Vital Signs Temp Pulse Resp BP Pulse Ox 04/23/22 06:52 98.5 F 60 16 138/60 93 L 04/23/22 05:36 60 16 143/82 93 L 04/23/22 02:12 60 18 148/79 98 04/23/22 01:36 63 19 147/75 96 04/22/22 23:26 98.5 F 67 16 203/91 95 Intake and Output 04/22/22 04/23/22 04/23/22 22:59 06:59 14:59 Other: Weight 108.862 kg GENERAL: The patient is alert and oriented x3, not in any acute distress. Well developed, well nourished. HEENT: Pupils are round and equally reacting to light. EOMI. No scleral icterus. No conjunctival pallor. Normocephalic, atraumatic. No pharyngeal erythema. No thyromegaly. CARDIOVASCULAR: S1 and S2 present. No murmurs, rubs, or gallops. PULMONARY: Chest is clear to auscultation, no wheezing or crackles. ABDOMEN: Soft, nontender, nondistended, normoactive bowel sounds. No palpable organomegaly. MUSCULOSKELETAL: No joint swelling or deformity. EXTREMITIES: No cyanosis, clubbing, or pedal edema. NEUROLOGICAL: Gross neurological examination did not reveal any focal deficits. SKIN: No rashes. no petechiae. Results CBC & Chem 7: 04/23/22 05:37 04/23/22 00:06 Labs: Abnormal Lab Results - Last 24 Hours (Table) 04/23/22 04/23/22 04/23/22 Range/Units 00:06 00:06 05:37 Hgb 12.6 L (13.0-17.5) gm/dL PT 13.8 H (9.0-12.0) sec INR 1.3 H (<1.2) APTT 32.2 H (22.0-30.0) sec Glucose 208 H (74-99) mg/dL POC Glucose (mg/dL) (75-99) mg/dL AST 65 H (17-59) U/L 04/23/22 04/23/22 Range/Units 07:11 07:11 Hgb (13.0-17.5) gm/dL PT (9.0-12.0) sec INR (<1.2) APTT (22.0-30.0) sec Glucose (74-99) mg/dL POC Glucose (mg/dL) 144 H 144 H (75-99) mg/dL AST (17-59) U/L Assessment and Plan Assessment: acute GI bleed suspected with bright blood per stool Chronic atrial fibrillation on anticoagulation. diabetes mellitus hypertension hyperlipidemia Plan: this is a pleasant 66 years old male who presents with acute GI bleed Continue to hold anticoagulation Continue with IV Protonix Monitor hemoglobin Surgical team consult Labs and medication were reviewed.. Continue same treatment. Continue with symptomatic treatment. Resume home medication. Monitor lytes and vitals. DVT and GI prophylaxis. Further recommendations as per clinical course of the patient DVT prophylaxis: Sno anticoagulation for bleed GI Prophylaxis: Ppi PT/OT: Pending Prognosis is guarded
[2022-04-23 12:35] LABS: Glucose,Whole Blood 158 mg/dL (75-99)
[2022-04-23] MEDS: INSULIN ASPART (NovoLOG) 100 UNIT/ML VIAL SQ SCH ×3 (12:35→19:45)
[2022-04-23 12:46] LABS: HGB 12.8 gm/dL (13.0-17.5); MCH 28.1 pg (25.0-35.0); MCHC 31.1 g/dL (31.0-37.0); MCV 90.1 fL (80.0-100.0); Mean Platelet Volume 6.8; Platelet Count 162 k/uL (150-450); RBC 4.55 m/uL (4.30-5.90); RDW 13.2 % (11.5-15.5); WBC 5.7 k/uL (3.8-10.6)
[2022-04-23] MEDS ORDERED: PROPOFOL 10 MG/ML 20 ML VIAL IV ONE (13:20)
[2022-04-23] MEDS ORDERED: LIDOCAINE 2% INJ 20 MG/ML (2 ML VIAL) ONE (13:20)
[2022-04-23] MEDS ORDERED: LACTATED RINGERS 1,000 ML IV ONE ×2 (13:27)
--- NOTE | 2022-04-23 13:41 | P.OP ---
Date of Procedure: 04/23/22 Preoperative Diagnosis: GI bleed Postoperative Diagnosis: Antral gastritis Procedure(s) Performed: EGD Anesthesia: MAC Surgeon: Jake Lo Pathology: other (Antrum) Condition: stable Disposition: PACU Description of Procedure: The patient's placed on the endoscopy table in the lateral position. He r eceived IV sedation. The gastro-/oropharynx passed in the esophagus and stomach. Scope was withdrawn. The first and second portion of the duodenum appeared normal. There is no evidence of any blood in the duodenum. The scope was then brought back the antrum. There was some mild hemorrhagic gastritis. His was biopsied.. The scope was retroflexed and remainder the stomach appeared normal. The GE junction was at 40 cm the distal esophagus. The proximal esophagus. Scope withdrawn for patient.
[2022-04-23] MEDS ORDERED: PEG 3350-NA SULF,BICARB,CL/KCL 4,000 ML BOTTLE PO ONE (15:00)
[2022-04-23] MEDS: amLODIPine 10 MG TAB PO SCH (17:07)
[2022-04-23 18:05] LABS: Glucose,Whole Blood 146 mg/dL (75-99)
[2022-04-23 18:10] LABS: HCT 39.9 % (39.0-53.0); MCH 29.3 pg (25.0-35.0); MCHC 32.6 g/dL (31.0-37.0); MCV 89.8 fL (80.0-100.0); Mean Platelet Volume 6.8; Platelet Count 188 k/uL (150-450); RBC 4.44 m/uL (4.30-5.90); RDW 13.6 % (11.5-15.5); WBC 6.3 k/uL (3.8-10.6)
[2022-04-23 19:45] LABS: Glucose,Whole Blood 127 mg/dL (75-99)
[2022-04-23] MEDS: METOPROLOL TARTRATE 50 MG TAB PO SCH (20:27)
[2022-04-24 00:13] LABS: Basophils % (A) 1 %; Eosinophils # (A) 0.2 k/uL (0-0.7); Eosinophils % (A) 4 %; HCT 37.2 % (39.0-53.0); HGB 12.1 gm/dL (13.0-17.5); Hypochromasia Slight; Lymphocytes # (A) 1.9 k/uL (1.0-4.8); Lymphocytes % (A) 36 %; MCH 29.4 pg (25.0-35.0); MCHC 32.6 g/dL (31.0-37.0); MCV 90.2 fL (80.0-100.0); Mean Platelet Volume 8.1; Monocytes # (A) 0.3 k/uL (0-1.0); Monocytes % (A) 6 %; Neutrophils # (A) 2.7 k/uL (1.3-7.7); Neutrophils % (A) 51 %; Platelet Count 150 k/uL (150-450); RBC 4.12 m/uL (4.30-5.90); RDW 13.7 % (11.5-15.5); WBC 5.4 k/uL (3.8-10.6)
[2022-04-24] MEDS: SODIUM CHLORIDE 0.9% 1,000 ML IV SCH (04:21)
[2022-04-24 06:23] LABS: Glucose,Whole Blood 148 mg/dL (75-99)
[2022-04-24] MEDS: INSULIN ASPART (NovoLOG) 100 UNIT/ML VIAL SQ SCH (06:23)
[2022-04-24 08:25] LABS: Basophils % (A) 1 %; Eosinophils # (A) 0.2 k/uL (0-0.7); Eosinophils % (A) 5 %; HCT 39.2 % (39.0-53.0); HGB 12.2 gm/dL (13.0-17.5); Hypochromasia Slight; Lymphocytes # (A) 1.1 k/uL (1.0-4.8); Lymphocytes % (A) 27 %; MCH 28.2 pg (25.0-35.0); MCHC 31.2 g/dL (31.0-37.0); MCV 90.6 fL (80.0-100.0); Mean Platelet Volume 6.7; Monocytes # (A) 0.3 k/uL (0-1.0); Monocytes % (A) 6 %; Neutrophils # (A) 2.4 k/uL (1.3-7.7); Neutrophils % (A) 60 %; Platelet Count 161 k/uL (150-450); RBC 4.33 m/uL (4.30-5.90); RDW 13.6 % (11.5-15.5); WBC 4.1 k/uL (3.8-10.6)
[2022-04-24] MEDS: METOPROLOL TARTRATE 50 MG TAB PO SCH (08:39)
[2022-04-24] MEDS: PANTOPRAZOLE 40 MG/10 ML VIAL IV SCH (08:40)
[2022-04-24 08:44] LABS: African American GFR (CKD) >90 (>60 ml/min/1.73 sqM); Anion Gap 9 mmol/L; Blood Urea Nitrogen 8 mg/dL (9-20); Calcium 8.3 mg/dL (8.4-10.2); Carbon Dioxide 27 mmol/L (22-30); Chloride 103 mmol/L (98-107); Glucose 162 mg/dL (74-99); Non-African American GFR(CKD) 89 (>60 ml/min/1.73 sqM); Potassium 4.1 mmol/L (3.5-5.1); Sodium 139 mmol/L (137-145)
[2022-04-24] MEDS: amLODIPine 10 MG TAB PO SCH (08:44)
--- NOTE | 2022-04-24 08:44 | P.PN ---
Subjective Progress Note Date: 04/24/22 66-year-old white male patient of Dr. Morales with past medical history of proxi mal atrial fibrillation on Xarelto, hypertension, diabetes mellitus type 2, sleep apnea on CPAP at a pressure of 16 cm of water, previous episode of GI bleeding 5 years ago, presented to the emergency department on 04/22/2022 with complaints of dark red bloody bowel movements that started yesterday at around 9 PM while the patient was out in his boat fishing. Patient states he had around 6-7 episodes initially with dark clots and subsequently the stools got brighter red in color. No abdominal pain, no lightheadedness, no chest pain, no shortness of breath. Patient reports some mild cramping, but abdomen is soft. No Hx of ETOH, no chronic liver disease. He came into the ER for evaluation. Hemoglobin on admission was 14.5, platelet count was 184, INR was 1.3, electrolytes and renal profile were unremarkable. AST was 65, ALT is 44, alk phos was 88, stool for a old blood was negative, stool for C. diff was negative. Hemodynamically patient has remained stable, he was given IV fluids at a rate of 130 ML per hour, and started on IV Protonix. He is calm and comfortable this morning, he is in sinus mechanism with a controlled rate, blood pressure is stable, no abdominal pain, general surgery has been consulted and the plan is to proceed with colonoscopy this morning. Of note with his previous episodes of GI bleeding patient presents similar presentation with maroon-colored stools, no hematemesis, had a colonoscopy at that time which showed no active source of bleeding. No breathing issues, patient is on room air with a pulse ox of 95%, does have past history of smoking which has been in remission for the past 20 years, carries [id number] smoking history prior to that. 04/24/2022, the patient has been seen in intensive care unit regarding her GI bleed. The patient underwent a EGD yesterday and the patient was found to have antral gastritis without any other acute abnormalities. A colonoscopy is to follow today. Meanwhile, the patient remains hemodynamically stable. On today's evaluation, the white cell count is at 4.1 and hemoglobin stable at 12.2. No abdominal pain. No nausea. No emesis. No chest pain. Hemodynamically stable and he is on no pressors. The patient is on room air oxygen for now. He remains on IV fluids at a rate of 75 mL an hour normal saline. He is using his CPAP overnight. The patient has no specific complaints. He remains nothing by mouth and he scheduled to undergoes colonoscopy at 10:00 today. Objective - Vital Signs Vital signs: Vital Signs Temp 97.6 F 04/24/22 04:00 Pulse 52 L 04/24/22 07:07 Resp 04/24/22 07:07 BP 152/73 04/24/22 07:07 Pulse Ox 93 L 04/24/22 07:07 FiO2 04/24/22 04:00 Intake & Output 04/23/22 04/24/22 04/24/22 18:59 06:59 18:59 Intake Total 1600 1560 130 Output Total 1 0 0 Balance 1599 1560 130 Weight 108.862 kg 111.1 kg Intake: IV 1600 1560 130 Sodium Chloride 0.9% 1, 1300 1560 130 000 ml @ 130 mls/hr IV . Q7H42M [facility] Rx#:[id number] Output: Urine 1 0 0 Other: Voiding Method Toilet # Voids 1 1 # Bowel Movements 2 1 - Exam GENERAL EXAM: Alert, very pleasant, 66-year-old white male, on room air comfortable in no apparent distress. HEAD: Normocephalic/atraumatic. EYES: Normal reaction of pupils, equal size. Conjunctiva pink, sclera white. NOSE: Clear with pink turbinates. THROAT: No erythema or exudates. NECK: No masses, no JVD, no thyroid enlargement, no adenopathy. CHEST: No chest wall deformity. Symmetrical expansion. LUNGS: Equal air entry with no crackles, wheeze, rhonchi or dullness. CVS: Regular rate and rhythm, normal S1 and S2, no gallops, no murmurs, no rubs ABDOMEN: Soft, nontender. No hepatosplenomegaly, normal bowel sounds, no guarding or rigidity. EXTREMITIES: No clubbing, no edema, no cyanosis, 2+ pulses and upper and lower extremities. MUSCULOSKELETAL: Muscle strength and tone normal. SPINE: No scoliosis or deformity SKIN: No rashes CENTRAL NERVOUS SYSTEM: Alert and oriented -3. No focal deficits, tone is normal in all 4 extremities. PSYCHIATRIC: Alert and oriented -3. Appropriate affect. Intact judgment and insight. - Labs CBC & Chem 7: 04/24/22 07:21 04/23/22 00:06 Labs: Abnormal Lab Results - Last 24 Hours (Table) 04/22/22 04/23/22 04/23/22 Range/Units 23:30 11:53 12:33 RBC (4.30-5.90) m/uL Hgb 12.8 L (13.0-17.5) gm/dL Hct (39.0-53.0) % POC Glucose (mg/dL) 158 H (75-99) mg/dL Stool Lactoferrin POSITIVE A (NEGATIVE) 04/23/22 04/23/22 04/24/22 Range/Units 18:04 19:44 00:02 RBC 4.12 L (4.30-5.90) m/uL Hgb 12.1 L (13.0-17.5) gm/dL Hct 37.2 L (39.0-53.0) % POC Glucose (mg/dL) 146 H 127 H (75-99) mg/dL Stool Lactoferrin (NEGATIVE) 04/24/22 04/24/22 Range/Units 06:21 07:21 RBC (4.30-5.90) m/uL Hgb 12.2 L (13.0-17.5) gm/dL Hct (39.0-53.0) % POC Glucose (mg/dL) 148 H (75-99) mg/dL Stool Lactoferrin (NEGATIVE) Microbiology - Last 24 Hours (Table) 04/22/22 23:30 Stool Culture - Preliminary Stool Assessment and Plan Plan: Assessment: #1. Acute GI blood loss anemia related to lower GI bleeding, patient had 6 or 7 episodes of dark clotty and bright red stools , currently inactive and stable. Strongly suspected lower GI bleed. EGD was done that showed some antral gastritis. The patient remains nothing by mouth. The patient is going to undergo a colonoscopy today. #2. History of paroxysmal atrial fibrillation on Xarelto which is currently on hold #3. Previous episode of lower GI bleeding 5 years ago #4. History of hypertension #5. Diabetes mellitus type 2 #6. Former smoker, carries [id number] smoking history in remission for last 20 years #7. Sleep apnea on CPAP at a pressure of 16 cm of water on a regular basis. The patient is extremely compliant with it Plan: Keep Xarelto on hold Continue monitoring the hemoglobin Colonoscopy today Keep nothing by mouth IV fluids Transfer the patient out of the intensive care unit following his colonoscopy.
[2022-04-24] MEDS ORDERED: PROPOFOL 10 MG/ML 20 ML VIAL IV ONE (10:27)
--- NOTE | 2022-04-24 10:54 | P.OP ---
Date of Procedure: 04/24/22 Preoperative Diagnosis: GI bleed Postoperative Diagnosis: External hemorrhoids Diverticulosis Sigmoid colon polyp Rectal polyp Procedure(s) Performed: Colonoscopy Anesthesia: MAC Surgeon: Jake Lo Pathology: other (Colon polyps) Condition: stable Disposition: PACU Description of Procedure: The patient's placed on the endoscopy table in the lateral position. He received IV sedation. Digital rectal exam is performed which revealed a few external hemorrhoids. The possible colonoscope was then placed patient anus and passed throughout the colon. The ileocecal valve was visualized. The cecum, ascending and transverse colon appeared normal. In the descending and sigmoid: There was scattered diverticulosis. In the sigmoid colon there was a polyp seen was removed the cold forcep. Scope summer back the rectum and a peduncular polyp seen this removed with the snare. Scope withdrawn for patient. There is no incision any GI bleed. Presumed patient may have made been bleeding from hemorrhoids, diverticulosis
[2022-04-24 14:48] VITALS: BP 159/78; PULSE 55; RESP 24
[2022-04-24 14:51] LABS: Glucose,Whole Blood 153 mg/dL (75-99)
[2022-04-24 14:56] VITALS: TEMP 97.7
--- NOTE | 2022-04-25 12:24 | P.DS ---
Providers Date of admission: 04/23/22 08:09 Attending physician: Triston Perdue MD Consults: 04/23/22 01:41 Consult Physician Stat Consulting Provider: Jake Lo Consult Reason/Comments: GI bleed Do you want consulting provider notified?: Already Contacted 04/23/22 09:19 Consult Physician Routine Consulting Provider: Rufino Brooks Consult Reason/Comments: ICU management Do you want consulting provider notified?: Already Contacted Primary care physician: Pasha Morales [facility] Hospital Course: Diagnoses: acute GI bleed suspected with bright blood per stool Chronic atrial fibrillation on anticoagulation. diabetes mellitus hypertension hyperlipidemia Hospital course: This is a pleasant 66 years old male with past medical history of B Ayleen, hypertension, hyperlipidemia Patient presents because of the bright blood in stool, several episodes with some mild abdominal pain. Eventually abdominal pain resolved and patient became symptomatic. He is been evaluated by surgery team, also he is monitored in the ICU for bright red however he is hemodynamically stable, hemoglobin is stable and on the day of discharge was 12.1 and 12.2. He underwent EGD and colonoscopy by surgery team which were unremarkable for cause of bleeding, except for having some external hemorrhoids. Also patient found to have scattered diverticulitis status post sigmoid polypectomy. Surgery team cleared the patient for discharge today and resume his Xarelto. Patient aspirin was stopped upon discharge area at the patient confirms aspirin was started by PCP Dr. Morales not by plug drill operator Dr. Mosquera. Also patient will be discharged on Protonix. He denies chest pain or abdominal pain. No dyspnea or change in urine or bowel habits. No fever. Patient was eager to go home today. Also patient with a prior lower to 50 mg twice a day, compared to home dose of 100 mg, due to his bradycardia but asymptomatic. Problems and management plan were discussed with the patient and he verbalized understanding and acceptance Patient was found stable and can be discharged home however he needs follow-up as an outpatient. Patient was instructed to follow up with PCP Dr. Morales within one week and patient agrees with the appointments made for him on 04/29 also patient instructed to follow up with surgeon Dr. Thompson on 05/01 and he agrees Physical exam Gen: patient is a AAOx3, no distress CVS: S1-S2, RRR, no murmur Lungs: B/L CTA, no wheezing Abdomen: soft, no distention, no tenderness, positive bowel sounds Extremity: no leg edema or induration Time spent more than 35 minutes Patient Condition at Discharge: Fair Plan - Discharge Summary Discharge Rx Participant: Yes New Discharge Prescriptions: New Pantoprazole [Protonix] 40 mg PO DAILY #30 tab Continue Cholecalciferol [Vitamin D3 (25 Mcg = 1000 Iu)] 25 mcg PO DAILY Rosuvastatin Calcium [Crestor] 10 mg PO HS Rivaroxaban [Xarelto] 20 mg PO HS metFORMIN HCL [Glucophage] 1,000 mg PO BID lisinopriL 40 mg PO DAILY amLODIPine [Norvasc] 10 mg PO DAILY Insulin Lispro [humaLOG Kwikpen] See Protocol SQ AC-TID Insulin Glargine,Hum.rec.anlog [Lantus Solostar Pen] 77 unit SQ HS Changed Metoprolol Tartrate [Lopressor] 50 mg PO BID #60 tab Discontinued Aspirin EC [Ecotrin Low Dose] 81 mg PO DAILY Discharge Medication List Cholecalciferol [Vitamin D3 (25 Mcg = 1000 Iu)] 25 mcg PO DAILY 04/23/22 [History] Insulin Glargine,Hum.rec.anlog [Lantus Solostar Pen] 77 unit SQ HS 04/23/22 [History] Insulin Lispro [humaLOG Kwikpen] See Protocol SQ AC-TID 04/23/22 [History] Rivaroxaban [Xarelto] 20 mg PO HS 04/23/22 [History] Rosuvastatin Calcium [Crestor] 10 mg PO HS 04/23/22 [History] amLODIPine [Norvasc] 10 mg PO DAILY 04/23/22 [History] lisinopriL 40 mg PO DAILY 04/23/22 [History] metFORMIN HCL [Glucophage] 1,000 mg PO BID 04/23/22 [History] Metoprolol Tartrate [Lopressor] 50 mg PO BID #60 tab 04/24/22 [Rx] Pantoprazole [Protonix] 40 mg PO DAILY #30 tab 04/24/22 [Rx] Follow up Appointment(s)/Referral(s): Arnulfo Sim MD [REFERRING] - 1 Week (See your DrAngela within 1 week) Pasha Morales MD [Primary Care Provider] - 04/29/22 8:30 am (April 29 08:30am) Jake Lo MD [STAFF PHYSICIAN] - 05/01/22 2:30 pm (May 01 2:30 ) Activity/Diet/Wound Care/Special Instructions: heart healthy diet activty is restricted till you see your doctor we recommend to check your glucose 4 times per day, before each meal and at bed time, keep the results in a log book and bring it to your doctor on you appointment date if your glucose is less than 70 or more than 400 then call 911 and come to emergency room Discharge Disposition: HOME SELF-CARE
== END 2022-04-24 16:10 | disposition home or self-care (01) ==
LOC: EC 23:08 → 3SCARD 04-23 00:40 → 2SICU 04-23 06:59 → OBSVTOIN 04-23 08:09 → INTOOBSV 04-23 08:09 → UNDODISIN 04-24 16:10
PROVIDERS: ADMIT Internal Medicine; ATTEND Internal Medicine
PROC: 0DB78ZX Excision of Stomach, Pylorus, Via Natural or Artificial Opening Endoscopic, Diagnostic (ICD-10-PCS; 2022-04-23)
PROC: 0DBP8ZX Excision of Rectum, Via Natural or Artificial Opening Endoscopic, Diagnostic (ICD-10-PCS; 2022-04-24)
PROC: 0DBN8ZX Excision of Sigmoid Colon, Via Natural or Artificial Opening Endoscopic, Diagnostic (ICD-10-PCS; principal; 2022-04-24 10:35)
DX: K92.1 Melena (principal); K64.4 Residual hemorrhoidal skin tags; D62 Acute posthemorrhagic anemia; K29.71 Gastritis, unspecified, with bleeding; D12.8 Benign neoplasm of rectum; K57.30 Diverticulosis of large intestine without perforation or abscess without bleeding; K63.5 Polyp of colon; I48.0 Paroxysmal atrial fibrillation; E11.9 Type 2 diabetes mellitus without complications; I10 Essential (primary) hypertension; R00.1 Bradycardia, unspecified; E78.5 Hyperlipidemia, unspecified; G47.30 Sleep apnea, unspecified; Z79.82 Long term (current) use of aspirin; Z79.4 Long term (current) use of insulin; Z79.01 Long term (current) use of anticoagulants; Z79.84 Long term (current) use of oral hypoglycemic drugs; Z79.899 Other long term (current) drug therapy; Z88.0 Allergy status to penicillin; Z88.8 Allergy status to other drugs, medicaments and biological substances; Z91.02 Food additives allergy status; Z90.49 Acquired absence of other specified parts of digestive tract; Z87.891 Personal history of nicotine dependence; Z87.11 Personal history of peptic ulcer disease; Z98.890 Other specified postprocedural states; Z83.3 Family history of diabetes mellitus; Z82.49 Family history of ischemic heart disease and other diseases of the circulatory system
CPT/HCPCS: 96376; 96374; 99291; 36415 ×2; 86900; 86901; 88305 ×2; 80053; 80048; 85025 ×2; 85027; 85610; 85730; 86850; 82272; 87324; 87045; 83630; 87046; 74022; 43239; 45380; 45385; G0378 ×3; J2704 ×2; C9113 ×2; J2001; 96361

== ENCOUNTER 2022-04-26 05:46 | Observation (INO) | payer MEDICARE ==
[2022-04-26 06:54] LABS: Basophils % (A) 1 %; Eosinophils # (A) 0.2 k/uL (0-0.7); Eosinophils % (A) 5 %; HCT 37.2 % (39.0-53.0); HGB 11.8 gm/dL (13.0-17.5); Lymphocytes # (A) 1.4 k/uL (1.0-4.8); Lymphocytes % (A) 27 %; MCH 28.4 pg (25.0-35.0); MCHC 31.8 g/dL (31.0-37.0); MCV 89.3 fL (80.0-100.0); Mean Platelet Volume 6.8; Monocytes # (A) 0.3 k/uL (0-1.0); Monocytes % (A) 6 %; Neutrophils % (A) 60 %; Platelet Count 178 k/uL (150-450); RBC 4.17 m/uL (4.30-5.90); RDW 13.9 % (11.5-15.5)
[2022-04-26 07:17] LABS: Albumin 4.3 g/dL (3.5-5.0); Calcium 9.1 mg/dL (8.4-10.2); Potassium 4.2 mmol/L (3.5-5.1); Total Bilirubin 0.6 mg/dL (0.2-1.3); Total Protein 7.1 g/dL (6.3-8.2)
--- NOTE | 2022-04-26 08:41 | ED ---
GI Bleed HPI - General Chief complaint: GI Bleed Stated complaint: Blood in Stool Time Seen by Provider: 04/26/22 06:03 Source: patient, family, RN notes reviewed Mode of arrival: ambulatory Limitations: no limitations - History of Present Illness Initial comments: 66-year-old male presents emergency Department chief complaint of rectal bleeding. Patient states that he was recently admittedICU for this complaint. Patient did have a lower scope. There is no exact cause show mild gastritis type changes, possible internal hemorrhoids. Patient states that he restarted his Xarelto at home and he started having bleeding again. Patient states she's had 2-3 episodes per her blood. Patient states most of blood denies any abdominal pain no chest pain or breath no syncopal episodes no lightheadedness. - Related Data Home Medications Medication Instructions Recorded Confirmed Cholecalciferol [Vitamin D3 (25 25 mcg PO DAILY 04/23/22 04/23/22 Mcg = 1000 Iu)] Insulin Glargine,Hum.rec.anlog 77 unit SQ HS 04/23/22 04/23/22 [Lantus Solostar Pen] Insulin Lispro [humaLOG Kwikpen] See Protocol SQ AC-TID 04/23/22 04/23/22 Rivaroxaban [Xarelto] 20 mg PO HS 04/23/22 04/23/22 Rosuvastatin Calcium [Crestor] 10 mg PO HS 04/23/22 04/23/22 amLODIPine [Norvasc] 10 mg PO DAILY 04/23/22 04/23/22 lisinopriL 40 mg PO DAILY 04/23/22 04/23/22 metFORMIN HCL [Glucophage] 1,000 mg PO BID 04/23/22 04/23/22 Previous Rx's Medication Instructions Recorded Metoprolol Tartrate [Lopressor] 50 mg PO BID #60 tab 04/24/22 Pantoprazole [Protonix] 40 mg PO DAILY #30 tab 04/24/22 Allergies Allergy/AdvReac Type Severity Reaction Status Date / Time cyclobenzaprine Allergy Rapid Verified 04/26/22 05:51 [From Flexeril] Heart Rate Penicillins Allergy Unknown Verified 04/26/22 05:51 red (food color) Allergy Rash/Hives Verified 04/26/22 05:51 Review of Systems ROS Statement: Those systems with pertinent positive or pertinent negative responses have been documented in the HPI. ROS Other: All systems not noted in ROS Statement are negative. Past Medical History Past Medical History: Diabetes Mellitus, GI Bleed, Hyperlipidemia, Hypertension Additional Past Medical History / Comment(s): Patient states that he had a GI bleed about 5 years ago History of Any Multi-Drug Resistant Organisms: None Reported Past Surgical History: Appendectomy, Orthopedic Surgery Additional Past Surgical History / Comment(s): Colonoscopy in the past Past Psychological History: No Psychological Hx Reported Smoking Status: Former smoker Past Alcohol Use History: None Reported Past Drug Use History: None Reported - Past Family History Father Additional Family Medical History / Comment(s): heart failure Mother Family Medical History: Diabetes Mellitus Brother(s) Family Medical History: Diabetes Mellitus Additional Family Medical History / Comment(s): pt states that his two older brothers from diabeties General Exam Limitations: no limitations General appearance: alert, in no apparent distress Head exam: Present: atraumatic, normocephalic, normal inspection Eye exam: Present: normal appearance, PERRL, EOMI. Absent: scleral icterus, conjunctival injection, periorbital swelling ENT exam: Present: normal exam, normal oropharynx, mucous membranes moist Neck exam: Present: normal inspection, full ROM. Absent: tenderness, meningismus, lymphadenopathy Respiratory exam: Present: normal lung sounds bilaterally. Absent: respiratory distress, wheezes, rales, rhonchi, stridor Cardiovascular Exam: Present: regular rate, normal rhythm, normal heart sounds. Absent: systolic murmur, diastolic murmur, rubs, gallop, clicks GI/Abdominal exam: Present: soft, normal bowel sounds. Absent: distended, tenderness, guarding, rebound, rigid Neurological exam: Present: alert, oriented X3 Skin exam: Present: warm, dry, intact, normal color. Absent: rash Course Vital Signs 04/26/22 04/26/22 05:51 08:32 Temperature 98.8 F Pulse Rate 78 63 Respiratory 16 18 Rate Blood Pressure 186/85 177/84 O2 Sat by Pulse 95 95 Oximetry Medical Decision Making - Medical Decision Making Patient's hemoglobin is stable, patient does have bleeding which patient will be observed with repeat H&H. - Lab Data Result diagrams: 04/26/22 06:20 04/26/22 06:20 Lab Results 0504/26/22 04/26/22 Range/Units 06:20 06:20 06:20 WBC 5.0 (3.8-10.6) k/uL RBC 4.17 L (4.30-5.90) m/uL Hgb 11.8 L (13.0-17.5) gm/dL Hct 37.2 L (39.0-53.0) % MCV 89.3 (80.0-100.0) fL MCH 28.4 (25.0-35.0) pg MCHC 31.8 (31.0-37.0) g/dL RDW 13.9 (11.5-15.5) % Plt Count 178 (150-450) k/uL MPV 6.8 Neutrophils % 60 % Lymphocytes % 27 % Monocytes % 6 % Eosinophils % 5 % Basophils % 1 % Neutrophils # 3.0 (1.3-7.7) k/uL Lymphocytes # 1.4 (1.0-4.8) k/uL Monocytes # 0.3 (0-1.0) k/uL Eosinophils # 0.2 (0-0.7) k/uL Basophils # 0.0 (0-0.2) k/uL APTT 26.5 (22.0-30.0) sec Sodium 141 (137-145) mmol/L Potassium 4.2 (3.5-5.1) mmol/L Chloride 101 (98-107) mmol/L Carbon Dioxide 27 (22-30) mmol/L Anion Gap 13 mmol/L BUN 13 (9-20) mg/dL Creatinine 1.08 (0.66-1.25) mg/dL Est GFR (CKD-EPI)AfAm 82 (>60 ml/min/1.73 sqM) Est GFR (CKD-EPI)NonAf 71 (>60 ml/min/1.73 sqM) Glucose 198 H (74-99) mg/dL Plasma Lactic Acid Tommy (0.7-2.0) mmol/L Calcium 9.1 (8.4-10.2) mg/dL Total Bilirubin 0.6 (0.2-1.3) mg/dL AST 68 H (17-59) U/L ALT 49 (4-49) U/L Alkaline Phosphatase 69 (38-126) U/L Troponin I (0.000-0.034) ng/mL Total Protein 7.1 (6.3-8.2) g/dL Albumin 4.3 (3.5-5.0) g/dL 04/26/22 04/26/22 Range/Units 06:20 06:20 WBC (3.8-10.6) k/uL RBC (4.30-5.90) m/uL Hgb (13.0-17.5) gm/dL Hct (39.0-53.0) % MCV (80.0-100.0) fL MCH (25.0-35.0) pg MCHC (31.0-37.0) g/dL RDW (11.5-15.5) % Plt Count (150-450) k/uL MPV Neutrophils % % Lymphocytes % % Monocytes % % Eosinophils % % Basophils % % Neutrophils # (1.3-7.7) k/uL Lymphocytes # (1.0-4.8) k/uL Monocytes # (0-1.0) k/uL Eosinophils # (0-0.7) k/uL Basophils # (0-0.2) k/uL APTT (22.0-30.0) sec Sodium (137-145) mmol/L Potassium (3.5-5.1) mmol/L Chloride (98-107) mmol/L Carbon Dioxide (22-30) mmol/L Anion Gap mmol/L BUN (9-20) mg/dL Creatinine (0.66-1.25) mg/dL Est GFR (CKD-EPI)AfAm (>60 ml/min/1.73 sqM) Est GFR (CKD-EPI)NonAf (>60 ml/min/1.73 sqM) Glucose (74-99) mg/dL Plasma Lactic Acid Tommy 1.3 (0.7-2.0) mmol/L Calcium (8.4-10.2) mg/dL Total Bilirubin (0.2-1.3) mg/dL AST (17-59) U/L ALT (4-49) U/L Alkaline Phosphatase (38-126) U/L Troponin I <0.012 (0.000-0.034) ng/mL Total Protein (6.3-8.2) g/dL Albumin (3.5-5.0) g/dL Disposition Clinical Impression: GI bleed Disposition: ADMITTED IP TO THIS HOSP Condition: Fair Referrals: Pasha Morales MD [Primary Care Provider] - 1-2 days Time of Disposition: 08:45
[2022-04-26] MEDS ORDERED: NALOXONE 0.4 MG/ML 1 ML VIAL IV PRN (09:09)
[2022-04-26] MEDS ORDERED: ACETAMINOPHEN TAB 325 MG TAB PO PRN (09:09)
[2022-04-26] MEDS: PANTOPRAZOLE 40 MG/10 ML VIAL IV SCH ×2 (09:17→20:59)
[2022-04-26 10:15] LABS: Glucose,Whole Blood 163 mg/dL (75-99)
[2022-04-26] MEDS ORDERED: NON FORMULARY DRUG (Insulin Lispro [Humalog Kwikpen] 100 UNIT/ML Insuln.Pen) SQ SCH (12:30)
--- NOTE | 2022-04-26 15:28 | P.HPIM ---
History of Present Illness H&P Date: 04/26/22 Chief Complaint: GI bleeding 66-year-old male presents emergency Department chief complaint of rectal bleeding. A Chen has medical history of hypertension, hyperlipidemia, previous GI bleeding. Patient was just recently discharged from the hospital on 04/24/2022 with a diagnosis of acute GI bleed secondary to possible hemorrhoids. Patient during this hospital visit had a colonoscopy performed general surgery team which revealed the unremarkable exam except for some external hemorrhoids. Patient also did have scattered diverticulitis. Patient's bleeding has resolved and he was discharged home in stable condition he was told to stop his aspirin however was resumed back on his Xarelto anticoagulation. Patient reports that he had been stable since discharge. He started to unfortunately have bleeding episodes again this morning. She denies any complaints of lightheadedness no dizziness no fevers no chills no nausea vomiting diarrhea Patient was admitted to observation floor Review of Systems Full complete 12 point review of system was performed and pertinent positives and negatives noted in HPI all other systems negative Past Medical History Past Medical History: Diabetes Mellitus, GI Bleed, Hyperlipidemia, Hypertension Additional Past Medical History / Comment(s): Patient states that he had a GI bleed about 5 years ago History of Any Multi-Drug Resistant Organisms: None Reported Past Surgical History: Appendectomy, Orthopedic Surgery Additional Past Surgical History / Comment(s): Colonoscopy in the past Past Psychological History: No Psychological Hx Reported Smoking Status: Former smoker Past Alcohol Use History: None Reported Past Drug Use History: None Reported - Past Family History Father Additional Family Medical History / Comment(s): heart failure Mother Family Medical History: Diabetes Mellitus Brother(s) Family Medical History: Diabetes Mellitus Additional Family Medical History / Comment(s): pt states that his two older brothers from diabeties Medications and Allergies Home Medications Medication Instructions Recorded Confirmed Type Cholecalciferol [Vitamin D3 (25 25 mcg PO DAILY 04/23/22 04/26/22 History Mcg = 1000 Iu)] Insulin Glargine,Hum.rec.anlog 77 unit SQ HS 04/23/22 04/26/22 History [Lantus Solostar Pen] Insulin Lispro [humaLOG Kwikpen] See Protocol SQ AC-TID 04/23/22 04/26/22 History Rivaroxaban [Xarelto] 20 mg PO HS 04/23/22 04/26/22 History Rosuvastatin Calcium [Crestor] 10 mg PO HS 04/23/22 04/26/22 History amLODIPine [Norvasc] 10 mg PO DAILY 04/23/22 04/26/22 History lisinopriL 40 mg PO DAILY 04/23/22 04/26/22 History metFORMIN HCL [Glucophage] 1,000 mg PO BID 04/23/22 04/26/22 History Pantoprazole [Protonix] 40 mg PO DAILY #30 tab 04/24/22 04/26/22 Rx Metoprolol Tartrate [Lopressor] 50 mg PO BID 04/26/22 04/26/22 History Allergies Allergy/AdvReac Type Severity Reaction Status Date / Time cyclobenzaprine Allergy Rapid Verified 04/26/22 11:24 [From Flexeril] Heart Rate Penicillins Allergy Unknown Verified 04/26/22 11:24 red (food color) Allergy Rash/Hives Verified 04/26/22 11:24 Physical Exam Osteopathic Statement: *. No significant issues noted on an osteopathic structural exam other than those noted in the History and Physical/Consult. Vitals: Vital Signs Temp Pulse Resp BP Pulse Ox 04/26/22 13:55 58 L 20 146/91 98 04/26/22 08:32 63 18 177/84 95 04/26/22 05:51 98.8 F 78 16 186/85 95 Intake and Output 04/26/22 04/26/22 04/26/22 06:59 14:59 22:59 Other: Weight 108.862 kg - Constitutional General appearance: average body habitus, cooperative - EENT Eyes: PERRLA Ears: bilateral: normal - Neck Neck: normal ROM - Respiratory Respiratory: negative: CTA - Cardiovascular Rhythm: regular Heart sounds: normal: S1, S2 - Gastrointestinal General gastrointestinal: normal bowel sounds, soft - Neurologic Neurologic: CNII-XII intact - Musculoskeletal Musculoskeletal: gait normal - Psychiatric Psychiatric: A&O x's 3 Results CBC & Chem 7: 04/26/22 06:20 04/26/22 06:20 Labs: Abnormal Lab Results - Last 24 Hours (Table) 04/26/22 04/26/22 04/26/22 Range/Units 06:20 06:20 10:13 RBC 4.17 L (4.30-5.90) m/uL Hgb 11.8 L (13.0-17.5) gm/dL Hct 37.2 L (39.0-53.0) % Glucose 198 H (74-99) mg/dL POC Glucose (mg/dL) 163 H (75-99) mg/dL AST 68 H (17-59) U/L Assessment and Plan (1) Gastrointestinal bleeding Current Visit: Yes Status: Acute Code(s): K92.2 - GASTROINTESTINAL H EMORRHAGE, UNSPECIFIED SNOMED Code(s): 52293635 Plan: Acute GI bleed Anemia -Patient reports recurrent episodes of hematochezia. Patient was just discharged from the hospital on 04/24/2022 is status post colonoscopy which was unrevealing of any acute source of bleeding. Patient was found to have external hemorrhoids. -We'll hold anticoagulation -Hemoglobin is currently stable we'll continue to trend -Patient is admitted to observation floor Chronic atrial fibrillation -Unfortunately due to patient's recurrent bleeding issue anticoagulation will need to be held going forward. Patient should follow-up with his PCP and thread puller regarding alternative therapy to anticoagulation versus correction of finding GI bleeding source Diabetes mellitus -Continue with home medications Hypertension -Stable continue with home meds
[2022-04-26 15:56] LABS: Basophils % (A) 1 %; Eosinophils # (A) 0.2 k/uL (0-0.7); Eosinophils % (A) 4 %; HGB 10.6 gm/dL (13.0-17.5); Hypochromasia Slight; Lymphocytes # (A) 1.5 k/uL (1.0-4.8); Lymphocytes % (A) 32 %; MCH 28.4 pg (25.0-35.0); MCHC 31.2 g/dL (31.0-37.0); Mean Platelet Volume 8.1; Monocytes # (A) 0.4 k/uL (0-1.0); Monocytes % (A) 8 %; Neutrophils # (A) 2.5 k/uL (1.3-7.7); Neutrophils % (A) 53 %; Platelet Count 145 k/uL (150-450); RBC 3.73 m/uL (4.30-5.90); RDW 13.4 % (11.5-15.5); WBC 4.7 k/uL (3.8-10.6)
[2022-04-26 17:53] LABS: Glucose,Whole Blood 151 mg/dL (75-99)
[2022-04-26] MEDS: INSULIN ASPART (NovoLOG) 100 UNIT/ML VIAL SQ SCH (17:55)
[2022-04-26] MEDS: metFORMIN 500 MG TAB PO SCH (17:55)
[2022-04-26 19:43] LABS: Basophils # (A) 0.1 k/uL (0-0.2); Basophils % (A) 1 %; Eosinophils # (A) 0.2 k/uL (0-0.7); Eosinophils % (A) 4 %; HCT 36.5 % (39.0-53.0); HGB 11.2 gm/dL (13.0-17.5); Hypochromasia Slight; Lymphocytes # (A) 2.2 k/uL (1.0-4.8); Lymphocytes % (A) 35 %; MCH 27.8 pg (25.0-35.0); MCHC 30.6 g/dL (31.0-37.0); MCV 90.7 fL (80.0-100.0); Mean Platelet Volume 7.3; Monocytes # (A) 0.4 k/uL (0-1.0); Monocytes % (A) 6 %; Neutrophils # (A) 3.2 k/uL (1.3-7.7); Neutrophils % (A) 52 %; Platelet Count 178 k/uL (150-450); RBC 4.03 m/uL (4.30-5.90); RDW 13.4 % (11.5-15.5); WBC 6.2 k/uL (3.8-10.6)
[2022-04-26 20:51] LABS: Glucose,Whole Blood 133 mg/dL (75-99)
[2022-04-26] MEDS: METOPROLOL TARTRATE 50 MG TAB PO SCH (20:58)
[2022-04-26] MEDS: INSULIN DETEMIR (LEVEMIR) 100 UNIT/ML SYR SQ SCH ×2 (20:59→21:50)
[2022-04-26] MEDS ORDERED: ATORVASTATIN 20 MG TAB PO SCH (21:00)
[2022-04-27 07:34] LABS: Glucose,Whole Blood 188 mg/dL (75-99)
[2022-04-27 08:05] VITALS: BP 145/76; PULSE 54; RESP 17; TEMP 98.3
[2022-04-27] MEDS: METOPROLOL TARTRATE 50 MG TAB PO SCH (08:10)
[2022-04-27] MEDS: metFORMIN 500 MG TAB PO SCH (08:10)
[2022-04-27] MEDS: INSULIN ASPART (NovoLOG) 100 UNIT/ML VIAL SQ SCH ×2 (08:11→12:03)
[2022-04-27] MEDS ORDERED: PANTOPRAZOLE 40 MG TABLET PO SCH (08:45)
[2022-04-27] MEDS ORDERED: lisinopriL 20 MG TAB PO SCH (09:00)
[2022-04-27] MEDS ORDERED: CHOLECALCIFEROL 25 MCG (1000 IU) TABLET PO SCH (09:00)
[2022-04-27] MEDS ORDERED: amLODIPine 10 MG TAB PO SCH (09:00)
[2022-04-27 11:36] LABS: Glucose,Whole Blood 138 mg/dL (75-99)
--- NOTE | 2022-04-27 13:09 | P.DS ---
Providers Date of admission: 04/26/22 10:43 Attending physician: Danny Dial MD Primary care physician: Pasha Morales - Discharge Diagnosis(es) (1) Gastrointestinal bleeding Current Visit: Yes Status: Acute Hospital Course: 66-year-old male presents emergency Department chief complaint of rectal bleeding. Patient has medical history of hypertension, hyperlipidemia, previous GI bleeding. Patient was just recently discharged from the hospital on 04/24/2022 with a diagnosis of acute GI bleed secondary to possible hemorrhoids. Patient during this hospital visit had a colonoscopy performed general surgery team which revealed the unremarkable exam except for some external hemorrhoids. Patient also did have scattered diverticulitis. Patient's bleeding has resolved and he was discharged home in stable condition he was told to stop his aspirin however was resumed back on his Xarelto anticoagulation. Patient reports that he had been stable since discharge. He started to unfortunately have bleeding episodes again on the day of readmission. Patient was admitted back to observation for 24 hours. While anticoagulation being held patient's of bleeding stopped. His hemoglobin stayed stable he was not symptomatic. He is being discharged home in stable medical condition. In- depth conversation was held with patient regarding risks of continuing anticoagulation and risks of discontinuing anticoagulation. At this time recommendation is for him to stop Xarelto until he follows up with his primary care and it systems analyst. Discussed with patient the risk of stopping Xarelto would be possibility of developing a stroke. He is accepting of this risk knowing that the risk of continuing anticoagulation would be further bleeding episodes On day of discharge patient condition is not having any complaints of headache dizziness lightheadedness fatigue. Full physical exam was performed on day of discharge. 32 mins. Patient Condition at Discharge: Fair Plan - Discharge Summary Discharge Rx Participant: Yes New Discharge Prescriptions: Continue Cholecalciferol [Vitamin D3 (25 Mcg = 1000 Iu)] 25 mcg PO DAILY Rosuvastatin Calcium [Crestor] 10 mg PO HS metFORMIN HCL [Glucophage] 1,000 mg PO BID lisinopriL 40 mg PO DAILY amLODIPine [Norvasc] 10 mg PO DAILY Insulin Lispro [humaLOG Kwikpen] See Protocol SQ AC-TID Insulin Glargine,Hum.rec.anlog [Lantus Solostar Pen] 77 unit SQ HS Pantoprazole [Protonix] 40 mg PO DAILY #30 tab Metoprolol Tartrate [Lopressor] 50 mg PO BID Discontinued Rivaroxaban [Xarelto] 20 mg PO HS Discharge Medication List Cholecalciferol [Vitamin D3 (25 Mcg = 1000 Iu)] 25 mcg PO DAILY 04/23/22 [History] Insulin Glargine,Hum.rec.anlog [Lantus Solostar Pen] 77 unit SQ HS 04/23/22 [History] Insulin Lispro [humaLOG Kwikpen] See Protocol SQ AC-TID 04/23/22 [History] Rosuvastatin Calcium [Crestor] 10 mg PO HS 04/23/22 [History] amLODIPine [Norvasc] 10 mg PO DAILY 04/23/22 [History] lisinopriL 40 mg PO DAILY 04/23/22 [History] metFORMIN HCL [Glucophage] 1,000 mg PO BID 04/23/22 [History] Pantoprazole [Protonix] 40 mg PO DAILY #30 tab 04/24/22 [Rx] Metoprolol Tartrate [Lopressor] 50 mg PO BID 04/26/22 [History] Follow up Appointment(s)/Referral(s): Pasha Morales MD [Primary Care Provider] - 1-2 days Discharge Disposition: HOME SELF-CARE
== END 2022-04-27 13:43 | disposition home or self-care (01) ==
LOC: EC 05:46 → 6NMEDSUR 10:43 → 4SSUR 17:30
PROVIDERS: ADMIT Family Medicine; ATTEND Family Medicine
DX: K62.5 Hemorrhage of anus and rectum (principal); D62 Acute posthemorrhagic anemia; I48.20 Chronic atrial fibrillation, unspecified; K64.4 Residual hemorrhoidal skin tags; K57.92 Diverticulitis of intestine, part unspecified, without perforation or abscess without bleeding; E11.9 Type 2 diabetes mellitus without complications; I10 Essential (primary) hypertension; E78.5 Hyperlipidemia, unspecified; Z79.01 Long term (current) use of anticoagulants; Z79.84 Long term (current) use of oral hypoglycemic drugs; Z79.4 Long term (current) use of insulin; Z79.899 Other long term (current) drug therapy; Z88.0 Allergy status to penicillin; Z88.8 Allergy status to other drugs, medicaments and biological substances; Z91.02 Food additives allergy status; Z87.19 Personal history of other diseases of the digestive system; Z90.49 Acquired absence of other specified parts of digestive tract; Z98.890 Other specified postprocedural states; Z87.891 Personal history of nicotine dependence; Z82.49 Family history of ischemic heart disease and other diseases of the circulatory system; Z83.3 Family history of diabetes mellitus
CPT/HCPCS: 96376; 96374; 99285; 36415; 93005; 80053; 83605; 84484; 85025; 85730; G0378 ×3; C9113